=== PATIENT | male | born 1985 ===

== ENCOUNTER 2021-11-23 16:33 | Emergency (ER) | payer OTHER, SELFPAY ==
[2021-11-23 16:45] VITALS: BP 104/68; PULSE 68; RESP 18; TEMP 37; O2SAT 99; BMI 22.3
[2021-11-23 17:24] LABS: COVID-19 Test Negative (Negative)
--- NOTE | 2021-11-23 18:30 | ED.GENADULT ---
HPI - General Adult General Chief complaint: General Medical Stated complaint: vomiting and fever Time Seen by Provider: 11/23/21 16:50 Source: patient Mode of arrival: ambulatory Limitations: no limitations History of Present Illness HPI narrative: 36-year-old male presents to ED for COVID like symptoms after recent COVID exposure. Patient states having chills, body aches, nausea, and 1 episode of emesis. Patient denies any chest pain, abdominal pain, fever, flank pain, dysuria, hematuria, back pain or shortness of breath. Patient states he received both COVID Moderna vaccine. Patient has not yet received. Related Data Allergies Allergy/AdvReac Type Severity Reaction Status Date / Time LOBSTER Allergy Severe FACIAL Uncoded 08/02/20 15:34 SWELLING Review of Systems Review of Systems: Yes all other systems are reviewed and are negative Constitutional: Constitutional: Reports as per HPI, Reports no additional constitutional complaints, Reports body ache(s), Reports chills and Reports fatigue Eyes: Eyes: Reports as per HPI and Reports no additional eye complaints ENT: Reports system reviewed and no additional complaints, except as documented and Reports as per HPI Cardiovascular: Cardiovascular: Reports as per HPI and Reports no additional cardiovascular complaints Respiratory: Respiratory: Reports as per HPI and Reports no additional respiratory complaints Gastrointestinal: Gastrointestinal: Reports as per HPI, Reports no additional gastrointestinal complaints, Denies abdominal pain, Reports nausea and Reports vomiting (Once) Genitourinary: Genitourinary: Reports no additional male genitourinary complaints and Reports as per HPI Musculoskeletal: Musculoskeletal: Reports no additional musculoskeletal complaints and Reports as per HPI Endocrine: Endocrine: Reports fatigue PMFSH Social History Social History Advance Directives: No Advance Directives Information Provided: Yes Physical Exam Vital Signs: Vital Signs: Last Vital Signs Temp 98.6 F 11/23/21 16:45 Pulse 68 11/23/21 16:45 Resp 18 11/23/21 16:45 BP 104/68 11/23/21 16:45 Pulse Ox 99 11/23/21 16:45 BMI result Body Mass Index 22.3 Const: General: cooperative, healthy appearing, comfortable, no acute distress, well developed, alert, awake and Physically active Orientation/consciousness: patient oriented x3 HENMT: Head: Yes normal to inspection, Yes No palpable skull fracture present, Yes normocephalic, Yes atraumatic and No abrasion Eyes: General: appearance normal, both eyes and all related structures Neck: Neck: Yes normal visual inspection, Yes full ROM, Yes no lymphadenopathy, Yes no meningeal signs, Yes trachea midline, Yes supple, No anterior neck swelling and No tender Chest: Chest palpation & inspection: normal inspection of the chest and normal palpation of entire chest wall Resp: Effort & Inspection: normal respiratory effort and able to speak in complete sentences Auscultation: clear to auscultation bilaterally Cardio: Jugular venous distension: no JVD Heart sounds: S1 normal heart sound present and S2 normal heart sound present GI: Inspection: Yes normal to inspection and No abdominal wall ecchymosis Palpation (GI): Soft to palpation, not firm, nontender, no guarding and not rigid : General: No CVA tenderness and Yes no CVA tenderness Back/Spine/Pelvis: Back: no CVA tenderness, No CVA tenderness and No back tenderness Skin: General skin exam: no rashes or lesions noted and elasticity normal Neuro: General: patient oriented x3 and no meningeal signs Extrem: General: Yes normal to inspection and Yes full ROM Psych: Appearance: grossly normal, well kempt and not disheveled Course Course Course Narrative: Patient tested for COVID Reevaluation(s) Reevaluation #1: Patient is COVID negative. Patient informed COVID swab negative but this may be false negative due to recent exposure. Patient patient informed to get retested in 5 days. Patient well-appearing Time: 18:42 Medical Decision Making [facility] Narrative Medical decision making narrative: Viral syndrome Lab Data Labs: Lab Results 11/23/21 Range/Units 16:47 COVID-19 (BRANDON) Negative (Negative) COVID-19 Clin Com See Note Discharge Plan Discharge Clinical Impression: Acute viral syndrome Patient Disposition: Home, Self-Care Instructions: Viral Syndrome (ED) Additional Instructions: Your COVID test came back negative. This may be a false negative. Recommend retesting in 5 days. Return to the ED immediately for any chest pain, shortness of breath, weakness, dizziness, abdominal pain, dysuria, hematuria, flank pain, fever, chills, or any other concerning symptoms. Stand Alone Forms: Work/School Release Interventions: ED Discharge Assessment Last Done: 11/23/21 19:04 Discharge Date/Time: 11/23/21 19:05 Print Language: Austrian
== END 2021-11-23 19:05 | disposition home or self-care (01) ==
LOC: HO.ED 18:47
PROVIDERS: Emergency Provider Emergency Medicine
DX: B34.9 Viral infection, unspecified (principal); Z20.822 Contact with and (suspected) exposure to COVID-19
CPT/HCPCS: 87635; 99283

== ENCOUNTER 2022-11-14 21:24 | Emergency (ER) | payer MEDICAID, SELFPAY ==
[2022-11-14 21:35] VITALS: BP 129/81; PULSE 94; RESP 20; TEMP 37.4; O2SAT 98; BMI 25.1
[2022-11-14 22:03] LABS: Basophils Percent Auto 0.1 % (0-2); Hematocrit 46.1 % (42.0-52.0); Imm Gran Abs Auto 0.05 X10*3/uL (0.00-0.03); Imm Gran Pct Auto 0.3 % (0.0-0.4); Lymphocytes Absolute Auto 1.6 X10*3/uL (1.2-4.9); Lymphocytes Percent Auto 10.6 % (20-40); MANUAL DIFF FLAG NO; Mean Corpuscular HGB Conc 34.7 g/dl (31.0-36.0); Mean Corpuscular Hemoglobin 30.7 pg (27.0-33.0); Mean Corpuscular Volume 88.5 fL (80.0-98.0); Mean Platelet Volume 8.8 fL (9.4-12.4); Monocytes Absolute Auto 1.1 X10*3/uL (0.1-1.2); Monocytes Percent Auto 7.2 % (2-11); Neutrophils Absolute Auto 12.2 x10*3/uL (2.0-8.3); Neutrophils Percent Auto 81.8 % (45-73); Platelet Count 397 X10*3/uL (160-400); Red Blood Count 5.21 X10*6/uL (4.60-5.80); Red Cell Distribution Width 12.4 % (11.0-16.0); White Blood Count 14.9 X10*3/uL (4.8-10.8)
[2022-11-14 22:14] LABS: Fentanyl, urine POSITIVE (Not Detect)
[2022-11-14 22:16] LABS: Anion Gap 15 (12-20); Blood Urea Nitrogen 18 mg/dL (9-16); Calcium 10.6 mg/dL (8.4-10.2); Carbon Dioxide 29 mmol/L (22-29); Chloride 99 mmol/L (96-108); Creatinine Clr Calc Pharmacy 93.2; Estimated Glomerular Filt Rate > 60; Glucose Random 96 mg/dL (60-115); Sodium 139 mmol/L (135-145)
[2022-11-14 22:16] LABS: Amphetamine Screen Urine Not Detected (Not Detect); Barbiturates, Urine Not Detected (Not Detect); Benzodiazepines Screen Urine POSITIVE (Not Detect); Cannabinoid Screen Urine POSITIVE (Not Detect); Opiate Screen Urine Not Detected (Not Detect); Phencyclidine Screen Urine Not Detected (Not Detect)
[2022-11-14 23:15] LABS: Cocaine Screen Urine Not Detected (Not Detect)
[2022-11-15 02:06] VITALS: BP 107/64; PULSE 75; TEMP 37.1; O2SAT 96
--- NOTE | 2022-11-15 02:11 | ED.PSYCH ---
HPI - Psych General Chief Complaint: ETOH/Substance Use Stated Complaint: withdrawals Time Seen by Provider: 11/15/22 02:09 Source: patient Mode of arrival: ambulatory Limitations: no limitations History of Present Illness HPI Narrative: Patient uses Percocet, heroin last use was 11/09 feels he is withdrawing reports anxiety asking for help patient uses 1 bundle a day for last 5- 6 months started with Percocet now using heroin patient wants to stop using drugs as she he wants to help his and kid patient feels anxious restless nauseated Related Data Allergies Allergy/AdvReac Type Severity Reaction Status Date / Time LOBSTER Allergy Severe FACIAL Uncoded 11/14/22 21:37 SWELLING Review of Systems Review of Systems: Yes all other systems are reviewed and are negative [facility] Social History Social History Alcohol intake: never Smoked in Last 30 Days: Yes Use of substances other than those prescribed or required for medical reasons: Yes Substance Use Type: Heroin, Marijuana and Opiates Substance Use Frequency: Chronic Longstanding Last Used Substance: Days (ago) Any prior treatment program specific to substance use: No Advance Directives: No Advance Directives Information Provided: No Physical Exam Vital Signs: Vital Signs: Last Vital Signs Temp 98.7 F 11/15/22 06:27 Pulse 69 11/15/22 06:27 Resp 15 11/15/22 06:27 BP 111/61 11/15/22 06:27 Pulse Ox 99 11/15/22 06:27 O2 Del Method 11/15/22 06:27 BMI result Body Mass Index 25.1 Appearance: Alert. Oriented X3. No acute distress. Anxious Eyes: PERRLA, No Nystagmus ENT: Pharynx normal. Oral Mucosa moist Neck: Normal inspection. Neck supple. CVS: Normal heart rate and rhythm. Pulses normal. Respiratory: No respiratory distress. Equal air entry bilateral, no wheezing/rales/rhonchi Abdomen: Soft and nontender. Bowel sounds are present, no mass palpable, no CVA tenderness Skin: Skin warm and dry. Normal skin color. Normal skin turgor. Extremities: No lower extremity edema. No calf tenderness Neuro: Oriented X 3. No motor deficit. No sensory deficit.No cerebellar signs , cranial nerves II-XII intact Const: Other: Appearance: Alert. Oriented X3. No acute distress. Eyes: PERRLA, No Nystagmus ENT: Pharynx normal. Oral Mucosa moist Neck: Normal inspection. Neck supple. CVS: Normal heart rate and rhythm. Pulses normal. Respiratory: No respiratory distress. Equal air entry bilateral, no wheezing/rales/rhonchi Abdomen: Soft and nontender. Bowel sounds are present, no mass palpable, no CVA tenderness Skin: Skin warm and dry. Normal skin color. Normal skin turgor. Extremities: No lower extremity edema. No calf tenderness psych: Anxious mood stable no SI or HI Neuro: Oriented X 3. No motor deficit. No sensory deficit.No cerebellar signs , cranial nerves II-XII intact Medications Administered Discontinued Medications Generic Name Dose Route Start Last Admin Trade Name Freq PRN Reason Stop Dose Admin Lorazepam 2 mg 11/15/22 02:16 11/15/22 03:24 Lorazepam 1 Mg Tablet PO 11/15/22 02:17 2 mg ONCE ONE Administration Medical Decision Making Medical Decision Making MDM Narrative: Will get care team/ recovery coordinator for detox placement Lab Data MDM Lab Attestation statement: I reviewed the patient's lab results. Result Diagrams: 11/14/22 21:56 11/14/22 21:56 Labs: Lab Results 11/14/22 11/14/22 11/14/22 Range/Units 21:56 21:56 21:57 WBC 14.9 H (4.8-10.8) X10*3/uL RBC 5.21 (4.60-5.80) X10*6/uL Hgb 16.0 (14.0-18.0) g/dl Hct 46.1 (42.0-52.0) % MCV 88.5 (80.0-98.0) fL MCH 30.7 (27.0-33.0) pg MCHC 34.7 (31.0-36.0) g/dl RDW 12.4 (11.0-16.0) % Plt Count 397 (160-400) X10*3/uL MPV 8.8 L (9.4-12.4) fL Immature Gran % (Auto) 0.3 (0.0-0.4) % Neut % (Auto) 81.8 H (45-73) % Lymph % (Auto) 10.6 L (20-40) % [place] % (Auto) 7.2 (2-11) % Eos % (Auto) 0.0 (0-4) % Baso % (Auto) 0.1 (0-2) % Lymph # (Auto) 1.6 (1.2-4.9) X10*3/uL [place] # (Auto) 1.1 (0.1-1.2) X10*3/uL Eos # (Auto) 0.0 (0.0-0.4) X10*3/uL Baso # (Auto) 0.0 (0.0-0.2) X10*3/uL Abs Immat Gran (auto) 0.05 H (0.00-0.03) X10*3/uL Absolute Neuts (auto) 12.2 H (2.0-8.3) x10*3/uL Absolute Nucleated RBC 0.000 (0.0-0.012) X10*3/uL Nucleated RBC % (auto) 0.0 (0.0-0.2) /100WBC Sodium 139 (135-145) mmol/L Potassium 4.0 (3.3-5.1) mmol/L Chloride 99 (96-108) mmol/L Carbon Dioxide 29 (22-29) mmol/L Anion Gap 15 (12-20) BUN 18 H (9-16) mg/dL Creatinine 1.12 (0.5-1.4) mg/dL Estim Creat Clear Calc 93.2 Estimated GFR > 60 Random Glucose 96 (60-115) mg/dL Calcium 10.6 H (8.4-10.2) mg/dL Urine Opiates Screen Not Detected (Not Detect) Urine Fentanyl Screen POSITIVE H (Not Detect) Ur Barbiturates Screen Not Detected (Not Detect) Ur Phencyclidine Scrn Not Detected (Not Detect) Ur Amphetamines Screen Not Detected (Not Detect) U Benzodiazepines Scrn POSITIVE H (Not Detect) Urine Cocaine Screen Not Detected (Not Detect) U Marijuana (THC) Screen POSITIVE H (Not Detect) Discharge Plan Discharge Clinical Impression: Opiate dependence Patient Disposition: Still a Patient Interventions: Rembrandt-Suicide Risk Severity Scale Last Done: 11/15/22 02:02
[2022-11-15] MEDS: LORazepam 1 MG TABLET 2 MG PO (03:24)
--- NOTE | 2022-11-15 03:28 | PC.NURSE ---
Patient is resting in bed with his eyes closed, RR 14, no s/s of distress noted. Patient medicated with Lorazepam 2 mg PO per MAR, warm blanket provided to patient.
[2022-11-15 06:27] VITALS: BP 111/61; PULSE 69; RESP 15; TEMP 37.1; O2SAT 99
--- NOTE | 2022-11-15 07:15 | PC.NURSE ---
assumed care of patient, pt aox3, calm and cooperative, VSS, plan for d/c vs detox?
[2022-11-15 08:07] VITALS: BP 112/69; PULSE 72; RESP 15
--- NOTE | 2022-11-15 10:09 | MHC.EDTECH ---
patient sleeping, declined having vitals taken
--- NOTE | 2022-11-15 10:51 | PHA.MEDREC ---
Pharmacy Consult ? Medication Reconciliation Pharmacy has completed the medication reconciliation.
--- NOTE | 2022-11-15 12:01 | PC.NURSE ---
alert, speech clear, skin wpd, states no complaints, laying in bed w/ nad, awaiting CARE team and men's basketball coach
--- NOTE | 2022-11-15 13:00 | MHC.RECOVSUP ---
? Reason for consult:BOTH o? Current location:[facility]? o? Identified substance use concern:? -? Support ?? Intervention: o? Community resources provided o? Harm reduction discussion ? Plan: o? Referral to [facility] ? Additional information:RC met with pt, discussed recovery resources and harm reduction stratagies with pt. Pt was provided with contatct information as pt would like to work with a etiquette coach and get information for MAT. Rc will follow up with the patient on Thursday. Pt says he is not interested in ATS at this time, and is going home today.
--- NOTE | 2022-11-15 13:34 | PC.NURSE ---
nad, speech clear, skin wpd, steady gait, inst reviewed and belonings returned
== END 2022-11-15 13:34 | disposition still patient (30) ==
PROVIDERS: Emergency Provider Internal Medicine
DX: F10.239 Alcohol dependence with withdrawal, unspecified (principal); Y90.9 Presence of alcohol in blood, level not specified; F11.20 Opioid dependence, uncomplicated; Z71.41 Alcohol abuse counseling and surveillance of alcoholic; Z79.899 Other long term (current) drug therapy
CPT/HCPCS: 36415; 80048; 80307; 85025; 99284; 99285

== ENCOUNTER 2022-11-17 10:14 | Emergency (ER) | payer MEDICAID, SELFPAY ==
[2022-11-17 10:58] VITALS: BP 116/74; PULSE 69; RESP 16; TEMP 36.4; O2SAT 99; BMI 24.4
--- NOTE | 2022-11-17 11:04 | ED.GENADULT ---
HPI - General Adult General Chief complaint: General Medical Stated complaint: withdrawals Time Seen by Provider: 11/17/22 11:01 Source: patient Mode of arrival: ambulatory Limitations: no limitations History of Present Illness HPI narrative: This is a 37-year-old male with a history of opiate use disorder who presents seeking Suboxone withdrawal symptoms. Patient reports using 2 bundles of heroin daily IV. His last use was [place] morning. Patient is here as he spoke to the [facility] today to try to start Suboxone but they are closed. There is plan for him to follow up with the clinic tomorrow. Patient is complaining of body pain, insomnia, upset stomach, diarrhea. Patient denies any additional substance use. Patient denies any suicidal ideations Patient reports he has been on Suboxone before in the past Related Data Previous Rx's Medication Instructions Recorded buprenorphine 8 mg-naloxone 2 mg 1 film buccal DAILY #3 ea 11/17/22 sublingual film (Suboxone) Allergies Allergy/AdvReac Type Severity Reaction Status Date / Time LOBSTER Allergy Severe FACIAL Uncoded 11/14/22 21:37 SWELLING Review of Systems Review of Systems: Yes all other systems are reviewed and are negative Constitutional: Constitutional: Reports no additional constitutional complaints, Reports body ache(s), Denies chills, Reports difficulty sleeping, Denies fever(s), Denies headache(s) and Denies weakness Eyes: Eyes: Reports no additional eye complaints and Denies change in vision ENT: Reports system reviewed and no additional complaints, except as documented, Denies dizziness, Denies headache(s), Denies nasal congestion, Denies nasal discharge and Denies neck pain Cardiovascular: Cardiovascular: Reports no additional cardiovascular complaints, Denies chest pain, Denies leg edema and Denies dyspnea Respiratory: Respiratory: Reports no additional respiratory complaints, Denies cough and Denies dyspnea Gastrointestinal: Gastrointestinal: Reports no additional gastrointestinal complaints, Reports abdominal pain, Reports diarrhea, Denies nausea and Denies vomiting Genitourinary: Genitourinary: Denies urinary incontinence Musculoskeletal: Musculoskeletal: Reports no additional musculoskeletal complaints, Denies back pain, Denies arthralgias, Denies joint swelling, Denies neck pain, Denies numbness and Denies tingling Integumentary/Breasts: Skin/Breast: Reports system reviewed and no additional complaints, except as docu and Denies rash Neurologic: Reports system reviewed and no additional complaints, except as documented, Denies dizziness, Denies headache(s), Denies numbness, Denies tingling and Denies weakness PMF Past Medical History Attestation statement: The following information was validated with the patient. Source: old records reviewed and nursing notes reviewed Social History Social History Alcohol intake: never Substance Use Type: Heroin, Marijuana and Opiates Advance Directives: No Advance Directives Information Provided: No Physical Exam ED Vital Signs: Vital Signs - 24 hr 11/17/22 10:58 Temperature 97.5 F Pulse Rate 69 Respiratory Rate 16 Blood Pressure 116/74 Pulse Oximetry 99 Oxygen Delivery Method Room Air BMI result Body Mass Index 24.4 Const Other: Grimacing, in pain General: alert Orientation/consciousness: patient oriented x3 Limitations: no limitations HENMT Head: Yes normal to inspection Ears: hearing grossly normal bilaterally Eyes General: appearance normal, both eyes and all related structures Neck Neck: Yes normal visual inspection Chest Chest palpation & inspection: normal inspection of the chest Resp Effort & Inspection: normal respiratory effort Cardio Rate: regular rate Rhythm: regular rhythm Peripheral pulses: Peripheral pulses 2+ throughout GI Inspection: Yes normal to inspection Skin General skin exam: no rashes or lesions noted Neuro General: patient oriented x3 and moves all extremities Cognition (Neuro): normal cognition Course Course Course Narrative: Patient feels much improved after 1 dose of Suboxone. Carolina martinez the recovery nurse came down to see the patient and plan is for him to follow up outpatient with them the [facility]. Patient given prescription for several days in case he cannot get there. Reviewed worrisome signs and symptoms of when to return to the emergency room. Comfortable discharge home. Medications Administered Discontinued Medications Generic Name Dose Route Start Last Admin Trade Name Freq PRN Reason Stop Dose Admin Buprenorphine/Naloxone 1 film 11/17/22 11:28 11/17/22 11:46 Buprenorphine/Naloxone 8/2 Mg Film SUBLINGUAL 11/17/22 11:29 1 film ONCE ONE Administration Medical Decision Making Medical Decision Making [facility] Narrative: 37-year-old male here in opiate withdrawal with history of 0 UD with last use [place]. Cows score 11 Will order drug screen, Suboxone 8 mg Differential Diagnosis Differential Diagnoses: The differential diagnosis associated with the presentation includes Lab Data Labs: Lab Results 11/17/22 Range/Units 12:19 Urine Opiates Screen Not Detected (Not Detect) Urine Fentanyl Screen POSITIVE H (Not Detect) Ur Barbiturates Screen Not Detected (Not Detect) Ur Phencyclidine Scrn Not Detected (Not Detect) Ur Amphetamines Screen Not Detected (Not Detect) U Benzodiazepines Scrn Not Detected (Not Detect) Urine Cocaine Screen Not Detected (Not Detect) U Marijuana (THC) Screen POSITIVE H (Not Detect) Discharge Plan Discharge Clinical Impression: Opiate withdrawal Patient Disposition: Home, Self-Care Instructions: Opioid Withdrawal (ED) Additional Instructions: Go to the [facility] tomorrow during the walk-in hours to be seen and for further doses of your Suboxone Prescriptions: New buprenorphine-naloxone [Suboxone] 8-2 mg film 1 film buccal DAILY Qty: 3 0RF Referrals: Physician,None [Primary Care Provider] - Interventions: ED Discharge Assessment Last Done: 11/17/22 12:47 Discharge Date/Time: 11/17/22 12:49
[2022-11-17] MEDS: Buprenorphine/Naloxone 8/2 mg FILM 1 FILM SUBLINGUAL (11:46)
--- NOTE | 2022-11-17 12:28 | MHC.RECOVRN ---
Received call from pt in the community who was reporting opioid withdrawal symptoms, t/w encouraged pt to present to ED. Pt had presented to [facility] ED on 11/15 for same. At that time pt received Ativan for withdrawal symptoms, met with a RC, and was dc home. This morning, pt reports last opiate use on 11/09 (had been using about 2 bundles daily) and continues to feel withdrawal. Pt has been on Suboxone in the past and would like to restart. Pt is staying in [place] and would be able to follow up with [facility] upon dc. Spoke with provider, plan for pt to receive Suboxone while in ED and have script sent to pharmacy. T/w provided pt with CCC and t/w contact information to follow up on 11/18.
[2022-11-17 12:39] LABS: Amphetamine Screen Urine Not Detected (Not Detect); Barbiturates, Urine Not Detected (Not Detect); Benzodiazepines Screen Urine Not Detected (Not Detect); Cannabinoid Screen Urine POSITIVE (Not Detect); Cocaine Screen Urine Not Detected (Not Detect); Fentanyl, urine POSITIVE (Not Detect); Opiate Screen Urine Not Detected (Not Detect); Phencyclidine Screen Urine Not Detected (Not Detect)
== END 2022-11-17 12:49 | disposition home or self-care (01) ==
PROVIDERS: Nurse Practitioner Family; Emergency Provider Student in an Organized Health Care Education/Training Program
DX: F11.93 Opioid use, unspecified with withdrawal (principal)
CPT/HCPCS: 80307; 99283

== ENCOUNTER → 2022-11-19 09:59 | Outpatient (BNVA) | payer MEDICAID, SELFPAY | PROVIDERS: Visit Provider Nurse Practitioner Psychiatric/Mental Health | DX: F11.20 Opioid dependence, uncomplicated (principal) | CPT/HCPCS: 99202 ==

== ENCOUNTER → 2022-11-26 10:11 | Outpatient (BNVA) | payer MEDICAID, SELFPAY | PROVIDERS: Visit Provider Nurse Practitioner Psychiatric/Mental Health | DX: F11.20 Opioid dependence, uncomplicated (principal) | CPT/HCPCS: 99212 ==

== ENCOUNTER → 2022-12-04 10:00 | Outpatient (BNVA) | payer MEDICAID, SELFPAY | PROVIDERS: Visit Provider Nurse Practitioner Psychiatric/Mental Health | DX: F11.20 Opioid dependence, uncomplicated (principal) | CPT/HCPCS: 99212 ==

== ENCOUNTER → 2022-12-17 09:55 | Outpatient (BNVA) | payer MEDICAID, SELFPAY | PROVIDERS: Visit Provider Nurse Practitioner Psychiatric/Mental Health | DX: Z51.81 Encounter for therapeutic drug level monitoring (principal); F11.20 Opioid dependence, uncomplicated | CPT/HCPCS: 80305; 99212 ==

== ENCOUNTER → 2022-12-31 09:57 | Outpatient (BNVA) | payer MEDICAID, SELFPAY | PROVIDERS: Visit Provider Nurse Practitioner Psychiatric/Mental Health | DX: F11.20 Opioid dependence, uncomplicated (principal) | CPT/HCPCS: 80305; 99212 ==

== ENCOUNTER → 2023-01-15 09:38 | Outpatient (BNVA) | payer MEDICAID, SELFPAY | PROVIDERS: Visit Provider Nurse Practitioner Psychiatric/Mental Health | DX: F11.20 Opioid dependence, uncomplicated (principal) | CPT/HCPCS: 99212 ==

== ENCOUNTER 2023-01-23 09:58 | Emergency (ER) | payer MEDICAID, SELFPAY ==
[2023-01-23 10:30] VITALS: BP 117/95; PULSE 69; RESP 18; TEMP 36.4; O2SAT 98; BMI 24.4
[2023-01-23] MEDS: Ondansetron ODT 4 MG TAB.RAPDIS TRANSLINGU (11:01)
--- NOTE | 2023-01-23 11:01 | ED.NAVMDI ---
HPI - Nausea/Vomiting/Diarrhea General Chief complaint: Abdominal Pain <JANES Villafana - Last Filed: 01/23/23 11:03> Stated complaint: abd pain, vomiting <JANES Villafana - Last Filed: 01/23/23 11:03> Time Seen by Provider: 01/23/23 16:23 <JANES Villafana - Last Filed: 01/23/23 11:03> Source: patient <JANES Warren Last Filed: 01/23/23 18:53> Mode of arrival: ambulatory <JANES Warren - Last Filed: 01/23/23 18:53> Limitations: no limitations <JANES Warren Last Filed: 01/23/23 18:53> History of Present Illness HPI Narrative: Patient is a 37 year old assigned male at with a history of opiate use disorder presenting to the emergency department today with intermittent abdominal cramping, nausea, and vomiting. Patient states that he has been having intermittent abdominal cramping, nausea, and vomiting over the last 24 hours. Patient denies eating any new or unsanitary food items. Patient denies any dizziness, lightheadedness, fever, chills, blurry vision, double vision, loss of vision, chest pain, difficulty breathing, shortness of breath, back pain, night sweats, pain with urination, increased urinary frequency, increased urinary urgency, blood in his urine or stool, syncope or a near syncopal episode, recent trauma or falls, bowel incontinence, bladder incontinence, bowel retention, bladder retention, or any other complaints at this time. <JANES Warren - Last Filed: 01/23/23 18:53> MD elicited complaint: nausea, vomiting and abdominal pain <JANES Warren - Last Filed: 01/23/23 18:53> Onset (ago): day(s) (1) <JANES Warren - Last Filed: 01/23/23 18:53> Associated nausea: Yes <JANES Warren Last Filed: 01/23/23 18:53> Associated abdominal pain: Yes <JANES Warren Last Filed: 01/23/23 18:53> Pain consistency: intermittent and now resolved <JANES Warren - Last Filed: 01/23/23 18:53> Severity: mild <JANES Warren - Last Filed: 01/23/23 18:53> Pain scale (0-10): 3 <JANES Warren Last Filed: 01/23/23 18:53> Exacerbating factors: none <JANES Warren Last Filed: 01/23/23 18:53> Relieving factors: none <JANES Warren Last Filed: 01/23/23 18:53> Associated symptoms: nausea/vomiting <JANES Warren Last Filed: 01/23/23 18:53> Related Data Home medications: Previous Rx's Medication Instructions Recorded naloxone 4 mg/actuation nasal 4 mg intranasal Q2M PRN opioid 11/19/22 spray (Narcan) overdose #2 ea digital therapeutics, OUD (Reset-O #1 ea 12/31/22 Digital Tarsha (OUD)) buprenorphine 12 mg-naloxone 3 mg 1 film sublingual DAILY #15 ea 01/15/23 sublingual film (Suboxone) ondansetron 4 mg disintegrating 4 mg PO Q8H 3 days #9 tabs 01/23/23 tablet <JANES Villafana Last Filed: 01/23/23 11:03> Allergies/Adverse reactions: Allergies Allergy/AdvReac Type Severity Reaction Status Date / Time LOBSTER Allergy Severe FACIAL Uncoded 01/15/23 09:48 SWELLING <JANES Villafana Last Filed: 01/23/23 11:03> Review of Systems Constitutional: Constitutional: Reports no additional constitutional complaints, Denies chills, Denies fever(s) and Denies night sweats <JANES Warren Last Filed: 01/23/23 18:53> Eyes: Eyes: Reports no additional eye complaints, Denies blurry vision, Denies change in vision, Denies diplopia, Denies eye discharge, Denies loss of vision and Denies eye pain <JANES Warren Last Filed: 01/23/23 18:53> ENT: Denies dizziness <JANES Warren Last Filed: 01/23/23 18:53> Cardiovascular: Cardiovascular: Reports no additional cardiovascular complaints, Denies chest pain, Denies lightheadedness, Denies Loss of Consciousness and Denies dyspnea <JANES Warren - Last Filed: 01/23/23 18:53> Respiratory: Respiratory: Reports no additional respiratory complaints and Denies dyspnea <JANES Warren Last Filed: 01/23/23 18:53> Gastrointestinal: Gastrointestinal: Reports abdominal pain (now resolved), Reports nausea and Reports vomiting <JANES Warren - Last Filed: 01/23/23 18:53> Genitourinary: Genitourinary: Reports no additional male genitourinary complaints, Denies hematuria, Denies oliguria, Denies difficulty urinating, Denies dysuria, Denies urinary frequency, Denies urinary hesitancy, Denies urinary incontinence and Denies urinary urgency <JANES Warren Last Filed: 01/23/23 18:53> Musculoskeletal: Musculoskeletal: Reports no additional musculoskeletal complaints, Denies numbness and Denies tingling <JANES Warren Last Filed: 01/23/23 18:53> Neurologic: Denies dizziness, Denies loss of vision, Denies numbness and Denies tingling <JANES Warren Last Filed: 01/23/23 18:53> Psychiatric: Psychiatric: Reports no additional psychiatric complaints <JANES Warren Last Filed: 01/23/23 18:53> Endocrine: Endocrine: Reports no additional endocrine complaints <JANES Warren - Last Filed: 01/23/23 18:53> Hematologic/Lymphatic: Hematologic/Lymphatic: Reports no additional hematologic/lymphatic complaints <JANES Warren - Last Filed: 01/23/23 18:53> Allergic/Immunologic: Allergic/Immunologic: Reports no additional allergic/immunologic complaints <JANES Warren Last Filed: 01/23/23 18:53> PMFSH Past Medical History Attestation statement: The following information was validated with the patient. <JANES Warren Last Filed: 01/23/23 18:53> Source: old records reviewed and nursing notes reviewed <JANES Warren - Last Filed: 01/23/23 18:53> Social History Social History: Social History Alcohol intake: never Substance Use Type: Heroin, Marijuana and Opiates Advance Directives: No Advance Directives Information Provided: No <JANES Villafana - Last Filed: 01/23/23 11:03> Physical Exam Vital Signs: Vital Signs: Last Vital Signs Temp 99.1 F 01/23/23 16:13 Pulse 65 01/23/23 16:13 Resp 16 01/23/23 16:13 BP 119/68 01/23/23 16:13 Pulse Ox 98 01/23/23 16:13 O2 Del Method 01/23/23 16:13 BMI result Body Mass Index 24.4 <JANES Villafana - Last Filed: 01/23/23 11:03> Vital Signs: Last Vital Signs Temp 99.1 F 01/23/23 16:13 Pulse 65 01/23/23 16:13 Resp 16 01/23/23 16:13 BP 119/68 01/23/23 16:13 Pulse Ox 98 01/23/23 16:13 O2 Del Method 01/23/23 16:13 BMI result Body Mass Index 24.4 <JANES Warren - Last Filed: 01/23/23 18:53> Const: General: cooperative, no acute distress, alert and awake <JANES Warren - Last Filed: 01/23/23 18:53> Nutritional Appearance: well nourished <JANES Warren - Last Filed: 01/23/23 18:53> Orientation/consciousness: patient oriented x3 <JANES Warren - Last Filed: 01/23/23 18:53> Limitations: no limitations <JANES Warren - Last Filed: 01/23/23 18:53> HEENT: Head: Yes normal to inspection and Yes atraumatic <JANES Warren Last Filed: 01/23/23 18:53> Ears: hearing grossly normal bilaterally and external ears normal <JANES Warren Last Filed: 01/23/23 18:53> General nose exam: Normal external nose present, no nasal discharge noted and no epistaxis <JANES Warren Last Filed: 01/23/23 18:53> Face and sinus: Yes normal facial exam, No abrasion and No laceration <Palmira Garcia [facility] Last Filed: 01/23/23 18:53> Mouth: Normal oral and palatal mucosa present, no drooling and no muffled voice <Palmira Garcia [facility] Last Filed: 01/23/23 18:53> Eyes: General: appearance normal, both eyes and all related structures <Palmira Garcia [facility] Last Filed: 01/23/23 18:53> Periorbital: periorbital findings normal <Palmira Garcia [facility] Last Filed: 01/23/23 18:53> Eyelids: Yes eyelids normal <Palmira Garcia [facility] Last Filed: 01/23/23 18:53> Conjunctivae: conjunctivae normal <Palmira Garcia [facility] Last Filed: 01/23/23 18:53> Pupils: Equal, round and reactive pupils present <Palmira Garcia [facility] Last Filed: 01/23/23 18:53> EOM: EOMs intact bilaterally <Palmira Newellmarylou [facility] Last Filed: 01/23/23 18:53> Neck: Neck: Yes normal visual inspection, Yes full ROM and Yes no lymphadenopathy <Palmira Garcia [facility] Last Filed: 01/23/23 18:53> Chest: Chest palpation & inspection: normal inspection of the chest <Palmira Newellmarylou [facility] Last Filed: 01/23/23 18:53> Resp: Effort & Inspection: normal respiratory effort and able to speak in complete sentences <Palmira Newellmarylou [facility] Last Filed: 01/23/23 18:53> Auscultation: clear to auscultation bilaterally <Palmira Newellmarylou [facility] Last Filed: 01/23/23 18:53> Cardio: Rate: regular rate <Palmira Newellmarylou [facility] Last Filed: 01/23/23 18:53> Rhythm: regular rhythm <Palmira Newellmarylou [facility] Last Filed: 01/23/23 18:53> GI: Inspection: Yes normal to inspection <Palmira Newellmarylou [facility] Last Filed: 01/23/23 18:53> Palpation (GI): Soft to palpation, not firm, nontender, no guarding and not rigid <Palmirakaylie Newellmarylou ID - Last Filed: 01/23/23 18:53> Neuro: General: patient oriented x3 and moves all extremities <JANES Warren - Last Filed: 01/23/23 18:53> Cranial nerves: Yes Equal, round and reactive pupils present <JANES Warren - Last Filed: 01/23/23 18:53> Cognition (Neuro): normal cognition <JANES Warren - Last Filed: 01/23/23 18:53> Motor exam (neuro): 5/5 motor strength present throughout <JANES Warren - Last Filed: 01/23/23 18:53> Sensory Exam: Normal double simultaneous stimulation for sensation <JANES Warren - Last Filed: 01/23/23 18:53> Coordination: [id number] test normal <JANES Warren - Last Filed: 01/23/23 18:53> Extrem: General: Yes normal to inspection, Yes full ROM and Yes capillary refill normal <JANES Warren - Last Filed: 01/23/23 18:53> Psych: Appearance: grossly normal <JANES Warren - Last Filed: 01/23/23 18:53> Mental Status: mental status grossly normal <JANES Warren - Last Filed: 01/23/23 18:53> Affect: normal affect <JANES Warren - Last Filed: 01/23/23 18:53> Attitude: cooperative <JANES Warren - Last Filed: 01/23/23 18:53> Thought process: Normal thought process present <JANES Warren - Last Filed: 01/23/23 18:53> Thought content: Normal thought content present <JANES Warren - Last Filed: 01/23/23 18:53> Insight: Good insight present (Psych) <JANES Warren - Last Filed: 01/23/23 18:53> Course Course Course Narrative: RME - 37 y/o male with history of opiate use disorder on suboxone presents to the ER for evaluation of nausea and abdominal cramping that started yesterday along with recurrent vomiting that started today. No diarrhea. Actively vomiting in triage. Given SL Zofran. Plan: labs and COVID swab. reassess after zofran <JANES Villafana - Last Filed: 01/23/23 11:03> Medications Administered Discontinued Medications Generic Name Dose Route Start Last Admin Trade Name Freq PRN Reason Stop Dose Admin Ondansetron HCl 4 mg 01/23/23 10:57 01/23/23 11:01 Ondansetron Odt 4 Mg Tab.Reginald TRANSLINGU 01/23/23 10:58 4 mg ONCE ONE Administration <JANES Villafana - Last Filed: 01/23/23 11:03> Medications Administered Discontinued Medications Generic Name Dose Route Start Last Admin Trade Name Freq PRN Reason Stop Dose Admin Ondansetron HCl 4 mg 01/23/23 10:57 01/23/23 11:01 Ondansetron Odt 4 Mg Tab.Rapdis TRANSLINGU 01/23/23 10:58 4 mg ONCE ONE Administration <JANES Warren - Last Filed: 01/23/23 18:53> Medical Decision Making Medical Decision Making MDM Narrative: Patient is a 37 year old assigned male at with a history of opiate use disorder presenting to the emergency department today with resolved abdominal pain, nausea, and vomiting. Patient's physical exam was unremarkable. Patient's blood work showed an elevated WBC count but was otherwise unremarkable. Patient's clinical presentation is most consistent with a viral gastroenteritis. I explained my physical exam findings as well as all test results to the patient. I answered all questions asked by the patient. Patient received ODT Zofran which he stated helped his symptoms significantly. I stressed the importance of the patient taking his medication as prescribed. I stressed the importance of the patient following up with his primary care provider. I stressed the importance of the patient returning to the emergency department immediately if his symptoms were to worsen or if he were to develop any dizziness, shortness of breath, difficulty breathing, chest pain, blurry vision, loss of vision, nausea, vomiting, abdominal pain, fever, chills, back pain, or any other complaints. Patient verbalized agreement and understanding with this treatment plan and discharge. <JANES Warren - Last Filed: 01/23/23 18:53> Differential Diagnosis Differential Diagnoses: The differential diagnosis associated with the presentation includes <JANES Warren - Last Filed: 01/23/23 18:53> nausea, vomiting, gastroenteritis <JANES Warren - Last Filed: 01/23/23 18:53> Lab Data [facility] Lab Attestation statement: I reviewed the patient's lab results. <JANES Warren - Last Filed: 01/23/23 18:53> Result Diagrams: 01/23/23 13:25 01/23/23 11:14 <JANES Villafana - Last Filed: 01/23/23 11:03> Labs: Lab Results 01/23/23 01/23/23 01/23/23 Range/Units 11:14 13:25 16:10 WBC 18.6 H (4.8-10.8) X10*3/uL RBC 5.17 (4.60-5.80) X10*6/uL Hgb 16.3 (14.0-18.0) g/dl Hct 47.4 (42.0-52.0) % MCV 91.7 (80.0-98.0) fL MCH 31.5 (27.0-33.0) pg MCHC 34.4 (31.0-36.0) g/dl RDW 12.9 (11.0-16.0) % Plt Count 220 D (160-400) X10*3/uL MPV Not Reportable Immature Gran % (Auto) 0.5 H (0.0-0.4) % Neut % (Auto) 88.7 H (45-73) % Lymph % (Auto) 6.2 L (20-40) % Cataño % (Auto) 4.3 (2-11) % Eos % (Auto) 0.1 (0-4) % Baso % (Auto) 0.2 (0-2) % Lymph # (Auto) 1.2 (1.2-4.9) X10*3/uL Cataño # (Auto) 0.8 (0.1-1.2) X10*3/uL Eos # (Auto) 0.0 (0.0-0.4) X10*3/uL Baso # (Auto) 0.0 (0.0-0.2) X10*3/uL Abs Immat Gran (auto) 0.10 H (0.00-0.03) X10*3/uL Absolute Neuts (auto) 16.5 H (2.0-8.3) x10*3/uL Absolute Nucleated RBC 0.000 (0.0-0.012) X10*3/uL Nucleated RBC % (auto) 0.0 (0.0-0.2) /100WBC Smear Tech's Comments VERIFIED Sodium 140 (135-145) mmol/L Potassium 4.3 (3.3-5.1) mmol/L Chloride 107 (96-108) mmol/L Carbon Dioxide 22 (22-29) mmol/L Anion Gap 15 (12-20) BUN 18 H (9-16) mg/dL Creatinine 0.85 (0.5-1.4) mg/dL Estim Creat Clear Calc 126.7 Estimated GFR > 60 Random Glucose 104 (60-115) mg/dL Calcium 9.4 D (8.4-10.2) mg/dL Total Bilirubin 0.5 (0.0-1.0) mg/dL AST 17 (5-37) U/L ALT 13 (0-40) U/L Alkaline Phosphatase 57 (39-117) U/L Total Protein 7.5 (6.5-8.0) g/dL Albumin 4.8 (3.5-5.0) g/dL Influenza Type A (PCR) NEGATIVE (Negative) Influenza Type B (PCR) NEGATIVE (Negative) RSV RNA Qual (PCR) NEGATIVE (Negative) SARS-CoV-2 RNA (RT-PCR) NEGATIVE (Negative) <JANES Villafana - Last Filed: 01/23/23 11:03> Lab Results 01/23/23 01/23/23 01/23/23 Range/Units 11:14 13:25 16:10 WBC 18.6 H (4.8-10.8) X10*3/uL RBC 5.17 (4.60-5.80) X10*6/uL Hgb 16.3 (14.0-18.0) g/dl Hct 47.4 (42.0-52.0) % MCV 91.7 (80.0-98.0) fL MCH 31.5 (27.0-33.0) pg MCHC 34.4 (31.0-36.0) g/dl RDW 12.9 (11.0-16.0) % Plt Count 220 D (160-400) X10*3/uL MPV Not Reportable Immature Gran % (Auto) 0.5 H (0.0-0.4) % Neut % (Auto) 88.7 H (45-73) % Lymph % (Auto) 6.2 L (20-40) % Cataño % (Auto) 4.3 (2-11) % Eos % (Auto) 0.1 (0-4) % Baso % (Auto) 0.2 (0-2) % Lymph # (Auto) 1.2 (1.2-4.9) X10*3/uL Cataño # (Auto) 0.8 (0.1-1.2) X10*3/uL Eos # (Auto) 0.0 (0.0-0.4) X10*3/uL Baso # (Auto) 0.0 (0.0-0.2) X10*3/uL Abs Immat Gran (auto) 0.10 H (0.00-0.03) X10*3/uL Absolute Neuts (auto) 16.5 H (2.0-8.3) x10*3/uL Absolute Nucleated RBC 0.000 (0.0-0.012) X10*3/uL Nucleated RBC % (auto) 0.0 (0.0-0.2) /100WBC Smear Tech's Comments VERIFIED Sodium 140 (135-145) mmol/L Potassium 4.3 (3.3-5.1) mmol/L Chloride 107 (96-108) mmol/L Carbon Dioxide 22 (22-29) mmol/L Anion Gap 15 (12-20) BUN 18 H (9-16) mg/dL Creatinine 0.85 (0.5-1.4) mg/dL Estim Creat Clear Calc 126.7 Estimated GFR > 60 Random Glucose 104 (60-115) mg/dL Calcium 9.4 D (8.4-10.2) mg/dL Total Bilirubin 0.5 (0.0-1.0) mg/dL AST 17 (5-37) U/L ALT 13 (0-40) U/L Alkaline Phosphatase 57 (39-117) U/L Total Protein 7.5 (6.5-8.0) g/dL Albumin 4.8 (3.5-5.0) g/dL Influenza Type A (PCR) NEGATIVE (Negative) Influenza Type B (PCR) NEGATIVE (Negative) RSV RNA Qual (PCR) NEGATIVE (Negative) SARS-CoV-2 RNA (RT-PCR) NEGATIVE (Negative) <JANES Warren - Last Filed: 01/23/23 18:53> Discharge Plan Discharge Clinical Impression: Gastroenteritis <JANES Villafana Last Filed: 01/23/23 11:03> Patient Disposition: Home, Self-Care <JANES Villafana Last Filed: 01/23/23 11:03> Instructions: Gastroenteritis (ED) <JANES Villafana Last Filed: 01/23/23 11:03> Additional Instructions: Follow up with your primary care provider. Return to the emergency department immediately if your symptoms worsen or if you develop any dizziness, shortness of breath, difficulty breathing, chest pain, blurry vision, loss of vision, nausea, vomiting, abdominal pain, fever, chills, back pain, or any other complaints. <JANES Villafana - Last Filed: 01/23/23 11:03> Prescriptions: New ondansetron 4 mg tablet,disintegrating 4 mg PO Q8H 3 Days Qty: 9 0RF No Action (DME) Reset-O Digital Tarsha (OUD) Misc See Rx Instructions .MEDSUPPLY Qty: 1 0RF Rx Instructions: As directed (3-4 times a week) 84 days buprenorphine-naloxone [Suboxone] 12-3 mg film 1 film sublingual DAILY Qty: 15 0RF naloxone [Narcan] 4 mg/actuation spray,non-aerosol 4 mg intranasal Q2M PRN (Reason: opioid overdose) Qty: 2 0RF Rx Instructions: spray 1 dose into ONE nostril; alternate nostrils w each dose until help arrives <JANES Villafana Last Filed: 01/23/23 11:03> Referrals: [facility] [place], [place] Family Medicine [Provider Group] (Call to establish and follow up with a primary care provider. If you already have a primary care provider, please follow up with them.) [facility] [place] [place] [facility] [Provider Group] (Call to establish and follow up with a primary care provider. If you already have a primary care provider, please follow up with them.) [facility] [place] [place] Primary [facility] [Provider Group] (Call to establish and follow up with a primary care provider. If you already have a primary care provider, please follow up with them.) <JANES Villafana - Last Filed: 01/23/23 11:03> Stand Alone Forms: Work/School Release <JANES Villafana - Last Filed: 01/23/23 11:03> Interventions: ED Discharge Assessment Last Done: 01/23/23 17:20 <JANES Villafana - Last Filed: 01/23/23 11:03> Discharge Date/Time: 01/23/23 17:20 <JANES Villafana - Last Filed: 01/23/23 11:03> Print Language: Khmer <JANES Villafana - Last Filed: 01/23/23 11:03>
--- NOTE | 2023-01-23 11:16 | MHC.EDTECH ---
Labs/covid collected and sent
[2023-01-23 12:30] LABS: Influenza A PCR NEGATIVE (Negative); Influenza B PCR NEGATIVE (Negative); Resp Syncy Virus RNA Qual PCR NEGATIVE (Negative); SARS COV2 PCR INHOUSE NEGATIVE (Negative)
[2023-01-23 13:32] LABS: Basophils Percent Auto 0.2 % (0-2); Eosinophils Percent Auto 0.1 % (0-4); Hematocrit 47.4 % (42.0-52.0); Hemoglobin 16.3 g/dl (14.0-18.0); Imm Gran Pct Auto 0.5 % (0.0-0.4); Lymphocytes Absolute Auto 1.2 X10*3/uL (1.2-4.9); Lymphocytes Percent Auto 6.2 % (20-40); MANUAL DIFF FLAG SCAN; Mean Corpuscular HGB Conc 34.4 g/dl (31.0-36.0); Mean Corpuscular Hemoglobin 31.5 pg (27.0-33.0); Mean Corpuscular Volume 91.7 fL (80.0-98.0); Monocytes Absolute Auto 0.8 X10*3/uL (0.1-1.2); Monocytes Percent Auto 4.3 % (2-11); Neutrophils Absolute Auto 16.5 x10*3/uL (2.0-8.3); Neutrophils Percent Auto 88.7 % (45-73); PLT CLUMP 1; Red Blood Count 5.17 X10*6/uL (4.60-5.80); Red Cell Distribution Width 12.9 % (11.0-16.0); SCAN SMEAR FLAG 1; White Blood Count 18.6 X10*3/uL (4.8-10.8)
[2023-01-23 13:59] LABS: Platelet Count 220 X10*3/uL (160-400)
[2023-01-23 14:00] LABS: SLIDE REVIEW VERIFIED
[2023-01-23 16:13] VITALS: BP 119/68; PULSE 65; RESP 16; TEMP 37.3; O2SAT 98
--- NOTE | 2023-01-23 16:14 | MHC.EDTECH ---
PT WAS CALLED BACK TO TRIAGE TO RE DRAW LABS AND RE CHECK VITALS SIGN .
[2023-01-23 16:34] LABS: Alanine Aminotransferase 13 U/L (0-40); Albumin Level 4.8 g/dL (3.5-5.0); Alkaline Phosphatase 57 U/L (39-117); Anion Gap 15 (12-20); Aspartate Amino Transferase 17 U/L (5-37); Bilirubin Total 0.5 mg/dL (0.0-1.0); Blood Urea Nitrogen 18 mg/dL (9-16); Calcium 9.4 mg/dL (8.4-10.2); Carbon Dioxide 22 mmol/L (22-29); Chloride 107 mmol/L (96-108); Creatinine Clr Calc Pharmacy 126.7; Estimated Glomerular Filt Rate > 60; Glucose Random 104 mg/dL (60-115); Potassium 4.3 mmol/L (3.3-5.1); Sodium 140 mmol/L (135-145); Total Protein 7.5 g/dL (6.5-8.0)
== END 2023-01-23 17:20 | disposition home or self-care (01) ==
PROVIDERS: Emergency Provider Emergency Medicine
DX: K52.9 Noninfective gastroenteritis and colitis, unspecified (principal); R10.9 Unspecified abdominal pain; R11.2 Nausea with vomiting, unspecified; Z20.822 Contact with and (suspected) exposure to COVID-19
CPT/HCPCS: 0241U; 80053; 85025; 99282; 99283

== ENCOUNTER → 2023-01-28 10:21 | Outpatient (BNVA) | payer MEDICAID, SELFPAY | PROVIDERS: Visit Provider Nurse Practitioner Psychiatric/Mental Health | DX: F11.20 Opioid dependence, uncomplicated (principal) | CPT/HCPCS: 99212 ==

== ENCOUNTER → 2023-02-18 10:33 | Outpatient (BNVA) | payer MEDICAID, SELFPAY | PROVIDERS: Visit Provider Nurse Practitioner Psychiatric/Mental Health | DX: F11.20 Opioid dependence, uncomplicated (principal); F12.20 Cannabis dependence, uncomplicated; Z79.899 Other long term (current) drug therapy; Z51.81 Encounter for therapeutic drug level monitoring | CPT/HCPCS: 99212 ==

== ENCOUNTER → 2023-03-11 09:58 | Outpatient (BNVA) | payer MEDICAID, SELFPAY | PROVIDERS: Visit Provider Nurse Practitioner Psychiatric/Mental Health | DX: Z51.81 Encounter for therapeutic drug level monitoring (principal); F11.20 Opioid dependence, uncomplicated | CPT/HCPCS: 99212 ==

== ENCOUNTER → 2023-04-02 10:01 | Outpatient (BNVA) | payer MEDICAID, SELFPAY | PROVIDERS: Visit Provider Nurse Practitioner Psychiatric/Mental Health | DX: Z51.81 Encounter for therapeutic drug level monitoring (principal); F11.20 Opioid dependence, uncomplicated | CPT/HCPCS: 80305; 99212 ==

== ENCOUNTER → 2023-04-27 10:28 | Outpatient (BNVA) | payer MEDICAID, SELFPAY | PROVIDERS: Visit Provider Nurse Practitioner Psychiatric/Mental Health | DX: Z51.81 Encounter for therapeutic drug level monitoring (principal); F11.20 Opioid dependence, uncomplicated | CPT/HCPCS: 80305; 99212 ==

== ENCOUNTER → 2023-05-18 10:19 | Outpatient (BNVA) | payer MEDICAID, SELFPAY | PROVIDERS: Visit Provider Nurse Practitioner Psychiatric/Mental Health | DX: Z51.81 Encounter for therapeutic drug level monitoring (principal); F11.20 Opioid dependence, uncomplicated | CPT/HCPCS: 99212 ==

== ENCOUNTER 2023-06-15 10:30 | Outpatient (AMB) | payer MEDICAID, SELFPAY ==
--- NOTE | 2023-06-15 10:32 | MHC.OFFVIS ---
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 [facility] Social History Alcohol intake: never Substance Use Type: Heroin, Marijuana and Opiates Review of Systems Const Reports as per HPI and Reports no additional complaints Physical Exam Vital Signs: Last Vital Signs Pulse 63 06/15/23 10:37 BP 114/76 06/15/23 10:37 Pulse Ox 96 06/15/23 10:37 Oxygen Delivery Method Room Air 06/15/23 10:37 Const General: cooperative and no acute distress Psych Appearance: well kempt Speech and movement: Clear speech present Attitude: cooperative Thought process: Normal thought process present Thought content: Normal thought content present Insight: Good insight present (Psych) Judgement: Good judgement present (Psych) Assessment & Plan Assessment & Plan (1) Opioid use disorder: Code(s): F11.90 - Opioid use, unspecified, uncomplicated Plan: continue suboxone at current dose follow up 4 weeks Medications: Refilled buprenorphine-naloxone 12-3 mg (Suboxone) 1 film sublingual DAILY 30 ea 0RF Coding Level of Care Code Est Pt Level 3 (02567) Diagnoses Opioid use disorder F11.90
[2023-06-15 10:37] VITALS: BP 114/76; PULSE 63; O2SAT 96
== END 2023-06-15 11:22 | disposition home or self-care (01) ==
LOC: HO.HCC 10:30
PROVIDERS: Visit Provider Nurse Practitioner Psychiatric/Mental Health
DX: F11.90 Opioid use, unspecified, uncomplicated (principal)
CPT/HCPCS: 99213

== ENCOUNTER → 2023-06-15 10:30 | Outpatient (BNVA) | payer MEDICAID, SELFPAY | PROVIDERS: Visit Provider Nurse Practitioner Psychiatric/Mental Health | DX: Z51.81 Encounter for therapeutic drug level monitoring (principal); F11.20 Opioid dependence, uncomplicated | CPT/HCPCS: 99213 ==

== ENCOUNTER 2023-07-10 09:56 | Outpatient (AMB) | payer MEDICAID, SELFPAY ==
--- NOTE | 2023-07-10 10:02 | MHC.OFFVIS ---
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 Doing well with recovery no questions or concerns at this time PFSH Social History Alcohol intake: never Substance Use Type: Heroin, Marijuana and Opiates Review of Systems Const Reports as per HPI and Reports no additional complaints Physical Exam Vital Signs: Last Vital Signs Pulse 82 07/10/23 10:05 BP 118/78 07/10/23 10:05 Pulse Ox 96 07/10/23 10:05 Oxygen Delivery Method Room Air 07/10/23 10:05 Const General: cooperative and no acute distress Psych Appearance: well kempt Speech and movement: Clear speech present Attitude: cooperative Thought process: Normal thought process present Thought content: Normal thought content present Insight: Good insight present (Psych) Judgement: Good judgement present (Psych) Assessment & Plan Assessment & Plan (1) Opioid use disorder: Code(s): F11.90 - Opioid use, unspecified, uncomplicated Plan: continue suboxone at current dose follow up 4 weeks Medications: Refilled buprenorphine-naloxone 12-3 mg (Suboxone) 1 film sublingual DAILY 30 ea 0RF Coding Level of Care Code Est Pt Level 3 (45804) Diagnoses Opioid use disorder F11.90
[2023-07-10 10:05] VITALS: BP 118/78; PULSE 82; O2SAT 96
== END 2023-07-10 10:40 | disposition home or self-care (01) ==
LOC: HO.HCC 09:56
PROVIDERS: Visit Provider Nurse Practitioner Psychiatric/Mental Health
DX: F11.90 Opioid use, unspecified, uncomplicated (principal)
CPT/HCPCS: 99213

== ENCOUNTER → 2023-07-10 09:56 | Outpatient (BNVA) | payer MEDICAID, SELFPAY | PROVIDERS: Visit Provider Nurse Practitioner Psychiatric/Mental Health | DX: F11.20 Opioid dependence, uncomplicated (principal) | CPT/HCPCS: 99212; 99213 ==

== ENCOUNTER 2023-08-07 10:04 | Outpatient (AMB) | payer MEDICAID, SELFPAY ==
--- NOTE | 2023-08-07 10:07 | A.OFFVIS_ITS ---
Intake Vital Signs 08/07/23 10:08 BP 110/74 Blood Pressure Location Lt radial Position Sitting Pulse 71 Pulse Source Pulse Oximeter Pulse Oximetry (%) 96 Oxygen Delivery Method Room Air Intake Visit Reasons: mat visit Intake Note: THE PATIENT PRESENTS FOR A MAT VISIT Area Director Of Home Health Sales Required: No Allergies LOBSTER Allergy (Severe, Uncoded 08/07/23 10:08) FACIAL SWELLING Do you need a note to return to daycare/school/sports/work: No HPI mat visit HPI Details Pt presents for OUD treatment follow up Currently being prescribed Suboxone 12mg QD Denies any side effects related to medication Still working 2 jobs Bright affect, feeling god about his recovery PFSH Social History Alcohol intake: never Substance Use Type: Heroin, Marijuana and Opiates Review of Systems Const Reports as per HPI and Reports no additional complaints Physical Exam Vital Signs: Last Vital Signs Pulse 71 08/07/23 10:08 BP 110/74 08/07/23 10:08 Pulse Ox 96 08/07/23 10:08 Oxygen Delivery Method Room Air 08/07/23 10:08 Const General: cooperative and no acute distress Psych Appearance: well kempt Speech and movement: Clear speech present Attitude: cooperative Thought process: Normal thought process present Thought content: Normal thought content present Insight: Good insight present (Psych) Judgement: Good judgement present (Psych) Assessment & Plan Assessment & Plan (1) Opioid use disorder: Code(s): F11.90 - Opioid use, unspecified, uncomplicated Plan: * continue suboxone at current dose * follow up 5weeks Medications: Refilled buprenorphine-naloxone 12-3 mg (Suboxone) 1 film sublingual DAILY 30 ea 0RF Coding Level of Care Code Est Pt Level 3 (51824) Diagnoses Opioid use disorder F11.90
[2023-08-07 10:08] VITALS: BP 110/74; PULSE 71; O2SAT 96
== END 2023-08-07 10:25 | disposition home or self-care (01) ==
LOC: HO.HCC 10:04
PROVIDERS: Visit Provider Nurse Practitioner Psychiatric/Mental Health
DX: F11.90 Opioid use, unspecified, uncomplicated (principal)
CPT/HCPCS: 99213

== ENCOUNTER → 2023-08-07 10:04 | Outpatient (BNVA) | payer MEDICAID, SELFPAY | PROVIDERS: Visit Provider Nurse Practitioner Psychiatric/Mental Health | DX: F11.20 Opioid dependence, uncomplicated (principal) | CPT/HCPCS: 99212 ==

== ENCOUNTER 2023-08-12 12:03 | Emergency (ER) | payer MEDICAID, SELFPAY ==
--- NOTE | ~2023-08-12 | CT_ITS ---
EXAMINATION: CT HEAD WITHOUT CONTRAST CT FACE WITHOUT CONTRAST CLINICAL INFORMATION: Head injury. Loss of consciousness. Emesis. COMPARISON: No relevant prior imaging. TECHNIQUE: Silk Folder images were obtained. CT imaging of the head and face was performed without contrast. Data was reformatted into multiplanar images at the acquisition workstation. This CT examination was performed using dose optimization techniques as appropriate, including one or more of the following: Automated exposure control, iterative reconstruction, and adjustment of technique factors (mA and/or kVp) according to patient size (this includes techniques or standardized protocols for targeted exams where dose is matched to indication/reason for exam). Fleischner Society criteria for the followup of incidental pulmonary nodules was implemented if appropriate. DLP: 922 mGy-cm. FINDINGS: There is no acute intracranial hemorrhage or abnormal extra-axial collection. No intracranial mass effect or midline shift. Lateral and third ventricles are normal. No hydrocephalus. Serrano-white matter differentiation is grossly preserved and there is no evidence of acute territorial infarct. The calvarium and skull base are intact. Mastoid air cells and middle ear cavities are well aerated. There is an age indeterminant fracture of the left zygomatic arch that demonstrates acute to subacute characteristics. The bone fragments are impacted by approximately 1 cm best visualized on axial image 166 of 243 series 4. There is only mild associated swelling within the overlying subcutaneous soft tissues. The nasal bones and pterygoid processes are intact. No acute mandibular fracture. No active paranasal sinus disease. Globes and extraocular muscles are grossly symmetric. Lamina papyracea and orbital floors are intact. Orbital apices are unremarkable. CT/CT facial bones wo IV con IMPRESSION: There is an age indeterminant fracture of the left zygomatic arch that demonstrates acute to subacute characteristics. The bone fragments are impacted by approximately 1 cm. Otherwise unremarkable examination. No acute intracranial hemorrhage. No intracranial mass effect or hydrocephalus.
--- NOTE | ~2023-08-12 | CT_ITS ---
EXAMINATION: CT HEAD WITHOUT CONTRAST CT FACE WITHOUT CONTRAST CLINICAL INFORMATION: Head injury. Loss of consciousness. Emesis. COMPARISON: No relevant prior imaging. TECHNIQUE: Senior Hr Manager images were obtained. CT imaging of the head and face was performed without contrast. Data was reformatted into multiplanar images at the acquisition workstation. This CT examination was performed using dose optimization techniques as appropriate, including one or more of the following: Automated exposure control, iterative reconstruction, and adjustment of technique factors (mA and/or kVp) according to patient size (this includes techniques or standardized protocols for targeted exams where dose is matched to indication/reason for exam). Fleischner Society criteria for the followup of incidental pulmonary nodules was implemented if appropriate. DLP: 922 mGy-cm. FINDINGS: There is no acute intracranial hemorrhage or abnormal extra-axial collection. No intracranial mass effect or midline shift. Lateral and third ventricles are normal. No hydrocephalus. Serrano-white matter differentiation is grossly preserved and there is no evidence of acute territorial infarct. The calvarium and skull base are intact. Mastoid air cells and middle ear cavities are well aerated. There is an age indeterminant fracture of the left zygomatic arch that demonstrates acute to subacute characteristics. The bone fragments are impacted by approximately 1 cm best visualized on axial image 166 of 243 series 4. There is only mild associated swelling within the overlying subcutaneous soft tissues. The nasal bones and pterygoid processes are intact. No acute mandibular fracture. No active paranasal sinus disease. Globes and extraocular muscles are grossly symmetric. Lamina papyracea and orbital floors are intact. Orbital apices are unremarkable. CT/CT head/brain wo IV con IMPRESSION: There is an age indeterminant fracture of the left zygomatic arch that demonstrates acute to subacute characteristics. The bone fragments are impacted by approximately 1 cm. Otherwise unremarkable examination. No acute intracranial hemorrhage. No intracranial mass effect or hydrocephalus.
[2023-08-12 12:07] VITALS: BP 152/70; PULSE 55; RESP 16; TEMP 36.6; O2SAT 98; BMI 25.1
--- NOTE | 2023-08-12 12:10 | ED_ITS ---
HPI - Head Injury General Chief complaint: General Medical Stated complaint: L Side Facial Pain S/P Fall 08/12/23 Time Seen by Provider: 08/12/23 13:51 Source: patient Mode of arrival: ambulatory Limitations: no limitations History of Present Illness HPI Narrative: Patient is a 37 year old assigned male at with a history of substance use disorder presenting to the emergency department today with left sided facial pain after a beam fell and hit him in the face. Patient states that he was working on a porch when he fell and then a beam landed on his face. Patient states that he lost consciousness for an unknown amount of time and when he woke up, he vomited. Patient states that he is unable to open his mouth wide secondary to pain. Patient denies any dizziness, lightheadedness, abdominal pain, nausea, vomiting, fever, chills, blurry vision, double vision, loss of vision, chest pain, difficulty breathing, shortness of breath, back pain, night sweats, pain with urination, increased urinary frequency, increased urinary urgency, blood in his urine or stool, syncope or a near syncopal episode, bowel incontinence, bladder incontinence, bowel retention, bladder retention, or any other complaints at this time. MD Complaint: head injury Onset (ago): hour(s) Loss of Consciousness: yes Location of injury: face Severity: moderate Severity scale (1-10): 6 Quality: aching Other Injuries: none Associated symptoms: nausea and vomiting Related Data Previous Rx's Medication Instructions Recorded naloxone 4 mg/actuation nasal 4 mg intranasal Q2M PRN opioid 11/19/22 spray (Narcan) overdose #2 ea buprenorphine 12 mg-naloxone 3 mg 1 film sublingual DAILY #30 ea 08/07/23 sublingual film (Suboxone) Allergies Allergy/AdvReac Type Severity Reaction Status Date / Time LOBSTER Allergy Severe FACIAL Uncoded 08/07/23 10:08 SWELLING Review of Systems Constitutional: Constitutional: Reports no additional constitutional complaints, Denies chills, Denies fever(s) and Denies night sweats Eyes: Eyes: Reports no additional eye complaints, Denies blurry vision, Denies change in vision, Denies diplopia, Denies eye discharge, Denies loss of vision and Reports eye pain (left side of the face) ENT: Denies dizziness Comments: jaw pain Cardiovascular: Cardiovascular: Reports no additional cardiovascular complaints, Denies chest pain, Denies lightheadedness, Denies Loss of Consciousness and Denies dyspnea Respiratory: Respiratory: Reports no additional respiratory complaints and Denies dyspnea Gastrointestinal: Gastrointestinal: Reports no additional gastrointestinal complaints, Denies abdominal pain, Denies melena, Denies hematochezia, Denies change in bowel habits, Denies change in stool character, Reports nausea and Reports vomiting Genitourinary: Genitourinary: Reports no additional male genitourinary complaints, Denies hematuria, Denies oliguria, Denies difficulty urinating, Denies dysuria, Denies urinary frequency, Denies urinary hesitancy, Denies urinary incontinence and Denies urinary urgency Musculoskeletal: Musculoskeletal: Reports no additional musculoskeletal complaints, Denies numbness and Denies tingling Neurologic: Denies dizziness, Denies loss of vision, Denies numbness and Denies tingling Psychiatric: Psychiatric: Reports no additional psychiatric complaints Endocrine: Endocrine: Reports no additional endocrine complaints Hematologic/Lymphatic: Hematologic/Lymphatic: Reports no additional hematologic/lymphatic complaints Allergic/Immunologic: Allergic/Immunologic: Reports no additional allergi c/immunologic complaints PMFSH Past Medical History Attestation statement: The following information was validated with the patient. Source: old records reviewed and nursing notes reviewed Social History Social History Alcohol intake: never Substance Use Type: Heroin, Marijuana and Opiates Advance Directives: No Advance Directives Information Provided: Yes Physical Exam Vital Signs: Vital Signs: Last Vital Signs Temp 98 F 08/12/23 12:07 Pulse 55 08/12/23 12:07 Resp 16 08/12/23 12:07 BP 152/70 H 08/12/23 12:07 Pulse Ox 98 08/12/23 12:07 O2 Del Method Room Air 08/12/23 12:07 BMI result Body Mass Index 25.1 Const: General: cooperative, no acute distress, alert and awake Nutritional Appearance: well nourished Orientation/consciousness: patient oriented x3 Limitations: no limitations HEENT: Other: bruising present to the left side of the face with an obvious indentation of the left zygomatic area, pain to palpation of the area, left eye continually watering Ears: hearing grossly normal bilaterally and external ears normal General nose exam: Normal external nose present, no nasal discharge noted and no epistaxis Face and sinus: Yes normal facial exam, No abrasion and No laceration Mouth: Normal oral and palatal mucosa present, no drooling and no muffled voice Eyes: General: appearance normal, both eyes and all related structures Periorbital: periorbital findings normal Eyelids: Yes eyelids normal Conjunctivae: conjunctivae normal Pupils: Equal, round and reactive pupils present EOM: EOMs intact bilaterally Neck: Neck: Yes normal visual inspection, Yes full ROM and Yes no lymphadenopathy Chest: Chest palpation & inspection: normal inspection of the chest Resp: Effort & Inspection: normal respiratory effort and able to speak in complete sentences GI: Inspection: Yes normal to inspection Neuro: General: patient oriented x3 and moves all extremities Cranial nerves: Yes Equal, round and reactive pupils present Cognition (Neuro): normal cognition Motor exam (neuro): 5/5 motor strength present throughout Sensory Exam: Normal double simultaneous stimulation for sensation Coordination: [id number] test normal Extrem: General: Yes normal to inspection, Yes full ROM and Yes capillary refill normal Psych: Appearance: grossly normal Mental Status: mental status grossly normal Affect: normal affect Attitude: cooperative Thought process: Normal thought process present Thought content: Normal thought content present Insight: Good insight present (Psych) Course Course Course Narrative: RME: 37yo M w/PMHx opiate use c/o L sided facial pain, +LOC, nausea and +emesis s/p large wood beam falling on face 20mins [employer]UM[employer] TEMP. states was building porch at work when beam fell. +dizziness after incident, denies taking AC +L sides facial ttp, ?deformity vs normal anatomy. No trismus, tearful Head/Facial CT ordered Full HPI, ROS and PE to be performed by primary ED provider. Medications Administered Discontinued Medications Generic Name Dose Route Start Last Admin Trade Name Deangelo PRN Reason Stop Dose Admin Acetaminophen 650 mg 08/12/23 13:53 08/12/23 13:58 Acetaminophen 325 Mg Tablet PO 08/12/23 13:54 650 mg ONCE ONE Administration Ketorolac Tromethamine 15 mg 08/12/23 13:53 08/12/23 13:58 Ketorolac Tromethamine 15 Mg/Ml Vial IM 08/12/23 13:54 15 mg ONCE ONE Administration Ondansetron HCl 4 mg 08/12/23 12:12 08/12/23 12:16 Ondansetron Odt 4 Mg Tab.Rapdis TRANSLINGU 08/12/23 12:13 4 mg ONCE ONE Administration Medical Decision Making Medical Decision Making [facility] Narrative: Patient is a 37 year old assigned male at with a history of opioid use disorder presenting to the emergency department today with left sided facial pa in after a traumatic incident. Patient's physical exam was as noted in the physical exam portion of this chart. Patient's head CT showed no acute process. Patient's facial CT showed a left Zygomatic arch fracture with 1cm of indentation. I called and spoke to Dr. Alcantara at [facility] who recommended placing the patient in a c-collar and transferring him directly to their ED. I explained my physical exam findings as well as all test results to the patient. I answered all questions asked by the patient. Patient verbalized agreement and understanding with this treatment plan and transfer. Differential Diagnosis Differential Diagnoses: The differential diagnosis associated with the presentation includes Traumatic head injury Left zygomatic arch fracture Admission/Observation Consideration of admission/observation: Escalation of care including admis samson/observation considered Patient to be transferred to [facility] ED Consult Healthcare Provider Management of the patient was discussed with: Order Runner (spoke with Dr. Alcantara as noted in the MDM portion of this note.) Independent Interpretation I performed an independent interpretation of an: CT Scan Interpretation: My interpretation is in agreement with the radiologist's impression of these imaging studies. EXAMINATION: CT HEAD WITHOUT CONTRAST CT FACE WITHOUT CONTRAST CLINICAL INFORMATION: Head injury. Loss of consciousness. Emesis. COMPARISON: No relevant prior imaging. TECHNIQUE: Senior Programmer images were obtained. CT imaging of the head and face was performed without contrast. Data was reformatted into multiplanar images at the acquisition workstation. This CT examination was performed using dose optimization techniques as appropriate, including one or more of the following: Automated exposure control, iterative reconstruction, and adjustment of technique factors (mA and/or kVp) according to patient size (this includes techniques or standardized protocols for targeted exams where dose is matched to indication/reason for exam). Fleischner Society criteria for the followup of incidental pulmonary nodules was implemented if appropriate. DLP: 922 mGy-cm. FINDINGS: There is no acute intracranial hemorrhage or abnormal extra-axial collection. No intracranial mass effect or midline shift. Lateral and third ventricles are normal. No hydrocephalus. Serrano-white matter differentiation is grossly preserved and there is no evidence of acute territorial infarct. The calvarium and skull base are intact. Mastoid air cells and middle ear cavities are well aerated. There is an age indeterminant fracture of the left zygomatic arch that demonstrates acute to subacute characteristics. The bone fragments are impacted by approximately 1 cm best visualized on axial image 166 of 243 series 4. There is only mild associated swelling within the overlying subcutaneous soft tissues. The nasal bones and pterygoid processes are intact. No acute mandibular fracture. No active paranasal sinus disease. Globes and extraocular muscles are grossly symmetric. Lamina papyracea and orbital floors are intact. Orbital apices are unremarkable. CT/CT head/brain wo IV con IMPRESSION: There is an age indeterminant fracture of the left zygomatic arch that demonstrates acute to subacute characteristics. The bone fragments are impacted by approximately 1 cm. Otherwise unremarkable examination. No acute intracranial hemorrhage. No intracranial mass effect or hydrocephalus. Dictated By: Qasim Robertson MD Signed By: Electronically signed by Qasim Robertson MD 08/12/23 1343 Radiology Impression Discussion of test interpretation with radiology: I have reviewed the radiologi st's reading. Critical Care Time Critical Care Time Critical Care Time: Yes Total Critical Care Time: 45 Attestation: I spent 45 minutes of Critical Care Time with this patient. This does not include time spent on separately reported billable procedures. Discharge Plan Discharge Clinical Impression: Closed fracture of zygomatic arch Patient Disposition: [facility] Transfer Details: To [facility] ED Prescriptions: No Action naloxone [Narcan] 4 mg/actuation spray,non-aerosol 4 mg intranasal Q2M PRN (Reason: opioid overdose) Qty: 2 0RF Rx Instructions: spray 1 dose into ONE nostril; alternate nostrils w each dose until help arrives buprenorphine-naloxone [Suboxone] 12-3 mg film 1 film sublingual DAILY Qty: 30 0RF
[2023-08-12] MEDS: Ondansetron ODT 4 MG TAB.RAPDIS TRANSLINGU ×2 (12:16→15:16)
[2023-08-12] MEDS: Acetaminophen 325 MG TABLET 650 MG PO (13:58)
[2023-08-12] MEDS: Ketorolac Tromethamine 15 MG/ML VIAL IM (13:58)
--- NOTE | 2023-08-12 14:26 | PC.NURSE ---
C-collar applied w/ PA Phyllis at bedside per [facility] trauma MD Nano. well tolerated by pt. endorces nausea has improved since PO zofran, medicated per JAN for 08/25 pain- plan is tx to [facility] for trauma eval
[2023-08-12 14:40] VITALS: BP 120/72; PULSE 66; RESP 18; TEMP 36.6; O2SAT 99
--- NOTE | 2023-08-12 14:49 | PC.NURSE ---
ED nurse to nurse called to JULIANNE Tony accepting MD [place] pt awating BLS transfler to [facility]
== END 2023-08-12 15:45 | disposition short-term general hospital (02) ==
PROVIDERS: Emergency Provider Emergency Medicine
DX: S02.40FA Zygomatic fracture, left side, initial encounter for closed fracture (principal); R55 Syncope and collapse; R11.2 Nausea with vomiting, unspecified; R51.9 Headache, unspecified; Y29.XXXA Contact with blunt object, undetermined intent, initial encounter; Y93.9 Activity, unspecified; Y92.9 Unspecified place or not applicable; Y99.9 Unspecified external cause status; Z79.899 Other long term (current) drug therapy
CPT/HCPCS: 70450; 70486; 96372; 99285; J1885

== ENCOUNTER 2023-09-11 10:00 | Outpatient (AMB) | payer MEDICAID, SELFPAY ==
--- NOTE | 2023-09-11 10:02 | MHC.OFFVIS ---
Intake Vital Signs 09/11/23 10:06 BP 110/68 Blood Pressure Location Lt radial Position Sitting Pulse 54 Pulse Source Pulse Oximeter Pulse Oximetry (%) 74 L Oxygen Delivery Method Room Air Intake Visit Reasons: mat visit Intake Note: the patient presents for a mat visit Allergies LOBSTER Allergy (Severe, Uncoded 09/11/23 10:07) FACIAL SWELLING Do you need a note to return to daycare/school/sports/work: No HPI mat visit HPI Details Patient presents for follow up On 08/12 had a beam hit his face and fractured zygomatic arch Required surgery--out of work Pain well managed now. No concerns related to DAKOTAH treatment [facility] Social History Alcohol intake: never Substance Use Type: Heroin, Marijuana and Opiates Review of Systems Const Reports as per HPI Physical Exam Vital Signs: Last Vital Signs Pulse 54 09/11/23 10:06 BP 110/68 09/11/23 10:06 Pulse Ox 74 L 09/11/23 10:06 Oxygen Delivery Method Room Air 09/11/23 10:06 Const General: cooperative and no acute distress Psych Appearance: well kempt Speech and movement: Clear speech present Attitude: cooperative Thought process: Normal thought process present Thought content: Normal thought content present Insight: Good insight present (Psych) Judgement: Good judgement present (Psych) Assessment & Plan Assessment & Plan (1) Opioid use disorder: Code(s): F11.90 - Opioid use, unspecified, uncomplicated Plan: continue suboxone at current dose follow up 10/25 Rx not due until 09/22 Medications: Refilled buprenorphine-naloxone 12-3 mg (Suboxone) 1 film sublingual DAILY 30 ea 0RF Coding Level of Care Code Est Pt Level 3 (84388) Diagnoses Opioid use disorder F11.90
[2023-09-11 10:06] VITALS: BP 110/68; PULSE 54; O2SAT 74
== END 2023-09-11 10:31 | disposition home or self-care (01) ==
PROVIDERS: Visit Provider Nurse Practitioner Psychiatric/Mental Health
DX: F11.90 Opioid use, unspecified, uncomplicated (principal)
CPT/HCPCS: 99213

== ENCOUNTER → 2023-09-11 10:00 | Outpatient (BNVA) | payer MEDICAID, SELFPAY | PROVIDERS: Visit Provider Nurse Practitioner Psychiatric/Mental Health | DX: F11.20 Opioid dependence, uncomplicated (principal) | CPT/HCPCS: 99212 ==

== ENCOUNTER 2023-11-03 16:57 | Outpatient (AMB) | payer MEDICAID, SELFPAY ==
[2023-11-03 17:04] VITALS: BP 118/78; PULSE 74; O2SAT 96
--- NOTE | 2023-11-03 17:04 | MHC.AM.SUB ---
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 Is coming up on 1 year in recovery! Patient became tearful in visit realizing he has been in recovery for nearly a year. Denies any concerns related to suboxone dose or side effects. [facility] Social History Alcohol intake: never Substance Use Type: Heroin, Marijuana and Opiates Review of Systems Const Reports as per HPI Physical Exam Vital Signs: Last Vital Signs Pulse 74 11/03/23 17:04 BP 118/78 11/03/23 17:04 Pulse Ox 96 11/03/23 17:04 Oxygen Delivery Method Room Air 11/03/23 17:04 Const General: cooperative and healthy appearing Resp Effort & Inspection: normal respiratory effort Psych Appearance: grossly normal Mental Status: mental status grossly normal Speech and movement: Normal speech and movement present Attitude: cooperative Thought content: Normal thought content present Assessment & Plan Assessment & Plan (1) Opioid use disorder: Code(s): F11.90 - Opioid use, unspecified, uncomplicated Plan: Continue suboxone at current dose Follow up 4 weeks Rx not due until 11/30 Coding Level of Care Code Est Pt Level 3 (17698) Diagnoses Opioid use disorder F11.90
== END 2023-11-03 17:14 | disposition home or self-care (01) ==
PROVIDERS: Visit Provider Nurse Practitioner Family
DX: F11.90 Opioid use, unspecified, uncomplicated (principal)
CPT/HCPCS: 99213

== ENCOUNTER → 2023-11-03 16:57 | Outpatient (BNVA) | payer MEDICAID, SELFPAY | PROVIDERS: Visit Provider Nurse Practitioner Family | DX: F11.20 Opioid dependence, uncomplicated (principal) | CPT/HCPCS: 99212 ==

== ENCOUNTER 2023-12-15 16:52 | Outpatient (AMB) | payer MEDICAID, SELFPAY ==
--- NOTE | 2023-12-15 16:53 | MHC.AM.SUB ---
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 He is tolerating the 8mg daily dose well, has no concerns He wishes to try the sublocade injection [facility] Social History Alcohol intake: never Substance Use Type: Heroin, Marijuana and Opiates Review of Systems Const Reports as per HPI Physical Exam Vital Signs: Last Vital Signs Pulse 66 12/15/23 16:58 BP 114/70 12/15/23 16:58 Pulse Ox 96 12/15/23 16:58 Oxygen Delivery Method Room Air 12/15/23 16:58 Const General: cooperative, healthy appearing and no acute distress Resp Effort & Inspection: normal respiratory effort and able to speak in complete sentences Psych Appearance: grossly normal Mental Status: mental status grossly normal Affect: normal affect Attitude: cooperative Thought process: Normal thought process present Assessment & Plan Assessment & Plan (1) Opioid use disorder: Code(s): F11.90 - Opioid use, unspecified, uncomplicated Plan: Continue suboxone at current dose Follow up 4 weeks Sublocade order placed Rx not due yet, pt to call when he needs more Coding Level of Care Code Est Pt Level 3 (03691) Diagnoses Opioid use disorder F11.90
[2023-12-15 16:58] VITALS: BP 114/70; PULSE 66; O2SAT 96
== END 2023-12-15 17:15 | disposition home or self-care (01) ==
PROVIDERS: Visit Provider Nurse Practitioner Family
DX: F11.90 Opioid use, unspecified, uncomplicated (principal)
CPT/HCPCS: 99213

== ENCOUNTER → 2023-12-15 16:52 | Outpatient (BNVA) | payer MEDICAID, SELFPAY | PROVIDERS: Visit Provider Nurse Practitioner Family | DX: F11.20 Opioid dependence, uncomplicated (principal) | CPT/HCPCS: 99212 ==

== ENCOUNTER 2024-01-20 16:01 | Outpatient (AMB) | payer OTHER, SELFPAY ==
--- NOTE | 2024-01-20 16:06 | A.OFFVISCC_ITS ---
Intake Vital Signs 01/20/24 16:12 BP 124/70 Blood Pressure Location Lt radial Position Sitting Pulse 66 Pulse Source Pulse Oximeter Pulse Oximetry (%) 97 Oxygen Delivery Method Room Air Intake Visit Reasons: MAT visit/SUB inj Intake Note: the patient is here for a sub inj Informatics Analyst Required: No Allergies LOBSTER Allergy (Severe, Uncoded 01/20/24 16:12) FACIAL SWELLING Do you need a note to return to daycare/school/sports/work: No HPI MAT visit/SUB inj HPI Details Patient presents for first sublocade injection Has no concerns for recovery at this time Has never had sublocade shot before 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 [facility] Social History Alcohol intake: never Substance Use Type: Heroin, Marijuana and Opiates Review of Systems Const Reports as per HPI Physical Exam Vital Signs: Last Vital Signs Pulse 66 01/20/24 16:12 BP 124/70 01/20/24 16:12 Pulse Ox 97 01/20/24 16:12 Oxygen Delivery Method Room Air 01/20/24 16:12 Const General: cooperative and healthy appearing Resp Effort & Inspection: normal respiratory effort Psych Appearance: grossly normal Mental Status: mental status grossly normal Speech and movement: Normal speech and movement present Affect: normal affect Attitude: cooperative Office Meds Sublocade 300 mg/1.5 mL solution,extended release subcutaneous syringe Performing Provider: Deepa Avina NP Performing Location: [facility] Administered by: Gabriella Taylor RN on 01/20/24 16:29 Dose Route Admin Location Dispensed Lot Number Expiration Date [facility] Plant Control Aide 300 mg subcut RLQ 1.5 mL [id number] 12/17/24 [address]-7 [employer]. Comments: Patient tolerated injection well with no stated or noted side effects. will call [facility] with any questions or concerns. Assessment & Plan Assessment & Plan (1) Opioid use disorder: Code(s): F11.90 - Opioid use, unspecified, uncomplicated Plan: -Med education provided -Educated patient on signs and symptoms of infection -Call clinic with any concerns or questions -Follow up 4 weeks Orders: Orders AMB Buprenorphine Injection 01/20/24 F11.90 - Opioid use, unspecified, uncomplicated Medications: Refilled buprenorphine-naloxone 8-2 mg (Suboxone) 1 film sublingual BID 8 ea 0RF Coding Level of Care Code Est Pt Level 3 (05689) Diagnoses Opioid use disorder F11.90
[2024-01-20 16:12] VITALS: BP 124/70; PULSE 66; O2SAT 97
== END 2024-01-20 16:42 | disposition home or self-care (01) ==
PROVIDERS: Visit Provider Nurse Practitioner Family
DX: F11.90 Opioid use, unspecified, uncomplicated (principal)
CPT/HCPCS: 99213

== ENCOUNTER → 2024-01-20 16:01 | Outpatient (BNVA) | payer OTHER, SELFPAY | PROVIDERS: Visit Provider Nurse Practitioner Family | DX: F11.20 Opioid dependence, uncomplicated (principal); Z51.81 Encounter for therapeutic drug level monitoring | CPT/HCPCS: 96372; Q9992 ==

== ENCOUNTER 2024-02-17 16:30 | Outpatient (AMB) | payer OTHER, SELFPAY ==
--- NOTE | 2024-02-17 16:33 | MHC.AM.SUB ---
Intake Vital Signs 02/17/24 16:37 BP 124/68 Blood Pressure Location Lt radial Position Sitting Pulse 90 Pulse Source Pulse Oximeter Pulse Oximetry (%) 98 Oxygen Delivery Method Room Air Intake Visit Reasons: SUB inj Intake Note: the patient presents for a sub inj Financial Brokers Required: No Allergies LOBSTER Allergy (Severe, Uncoded 02/17/24 16:38) FACIAL SWELLING Do you need a note to return to daycare/school/sports/work: No PFSH Social History Alcohol intake: never Substance Use Type: Heroin, Marijuana and Opiates Assessment & Plan Assessment & Plan Medications: Refilled buprenorphine ER (Sublocade) 300 mg (1.5 mL) subcut .every 28 days 1.5 mL 1RF Coding
[2024-02-17 16:37] VITALS: BP 124/68; PULSE 90; O2SAT 98
--- NOTE | 2024-02-17 16:43 | AM.OFFVISNUR ---
Intake Vital Signs 02/17/24 16:37 BP 124/68 Blood Pressure Location Lt radial Position Sitting Pulse 90 Pulse Source Pulse Oximeter Pulse Oximetry (%) 98 Oxygen Delivery Method Room Air Intake Visit Reasons: SUB inj Allergies LOBSTER Allergy (Severe, Uncoded 02/17/24 16:38) FACIAL SWELLING Office Meds Sublocade 300 mg/1.5 mL solution,extended release subcutaneous syringe Performing Provider: Deepa Avina NP Performing Location: [facility] Administered by: Gabriella Taylor RN on 02/17/24 16:55 Dose Route Admin Location Dispensed Lot Number Expiration Date [facility] Fine Arts Teacher 300 mg subcut LLQ 1.5 mL [id number] 01/14/25 [address]-3 [employer]. Coding Assessment & Plan Assessment & Plan Orders: Orders AMB Buprenorphine Injection Today F11.90 - Opioid use, unspecified, uncomplicated Medications: Refilled buprenorphine ER (Sublocade) 300 mg (1.5 mL) subcut .every 28 days 1.5 mL 1RF
== END 2024-02-17 16:55 | disposition home or self-care (01) ==
DX: F11.90 Opioid use, unspecified, uncomplicated (principal)

== ENCOUNTER → 2024-02-17 16:30 | Outpatient (BNVA) | payer OTHER, SELFPAY | DX: F11.90 Opioid use, unspecified, uncomplicated (principal); Z51.81 Encounter for therapeutic drug level monitoring | CPT/HCPCS: 96372; Q9992 ==

== ENCOUNTER 2024-04-05 17:04 | Outpatient (AMB) | payer OTHER, SELFPAY ==
[2024-04-05 17:13] VITALS: BP 130/75; PULSE 88; RESP 18; O2SAT 98
--- NOTE | 2024-04-05 17:13 | MHC.AM.SUB ---
Vital Signs 04/05/24 17:13 BP 130/75 Blood Pressure Location Rt radial Position Sitting Respiration 18 Pulse 88 Pulse Source Pulse Oximeter Pulse Oximetry (%) 98 Intake Visit Reasons: Sub inj Allergies LOBSTER Allergy (Severe, Uncoded 02/17/24 16:38) FACIAL SWELLING [facility] Social History Alcohol intake: never Substance Use Type: Heroin, Marijuana and Opiates Physical Exam Vital Signs: Last Vital Signs Pulse 88 04/05/24 17:13 Resp 18 04/05/24 17:13 BP 130/75 04/05/24 17:13 Pulse Ox 98 04/05/24 17:13 Assessment & Plan Assessment & Plan (1) Opioid use disorder: Code(s): F11.90 - Opioid use, unspecified, uncomplicated Category: Medical Orders: Orders AMB Buprenorphine Injection Today F11.90 - Opioid use, unspecified, uncomplicated Medications: New Sublocade ER (buprenorphine) 300 mg (1.5 mL) subcut ONCE 1.5 mL 0RF NS F11.90 - Opioid use, unspecified, uncomplicated Refilled buprenorphine ER (Sublocade) 300 mg (1.5 mL) subcut .every 28 days 1.5 mL 3RF
--- NOTE | 2024-04-05 17:33 | AM.OFFVISNUR ---
Intake Vital Signs 04/05/24 17:13 BP 130/75 Blood Pressure Location Rt radial Position Sitting Respiration 18 Pulse 88 Pulse Source Pulse Oximeter Pulse Oximetry (%) 98 Intake Visit Reasons: Sub inj Allergies LOBSTER Allergy (Severe, Uncoded 02/17/24 16:38) FACIAL SWELLING Nursing Note Pt missed last injection due to work but reports he is not feeling any W/D sx. Pt reports ongoing sobriety on sublocade injection. He presents as loosing weight and reports that he has difficulty eating due to accident at work with his jaw. Pt was given supplements and resources for nutrition supplements. Pt received sublocade 300mg in RLQ as per MD orders. Pt tolerated injection well and was educated on comfort measures following injection as well as care of injection site. Pt denies SE of last injection. Pt to F/U in clinic in one month. Office Meds Sublocade 300 mg/1.5 mL solution,extended release subcutaneous syringe Performing Provider: Rosalind Dai CNP Performing Location: [facility] Administered by: Drea Beck RN on 04/05/24 17:27 Dose Route Admin Location Dispensed Lot Number Expiration Date [facility] Wash Driller Helper 300 mg subcut 1.5 mL [id number] 01/14/25 [address]-6 [employer]. Comments: Pt tolerated injection well. Denies SE or W/D and none noted Educated on S&S to report to clinic. Pt to F/U in 1 month. Coding Diagnoses Opioid use disorder F11.90 Assessment & Plan Assessment & Plan (1) Opioid use disorder: Code(s): F11.90 - Opioid use, unspecified, uncomplicated Category: Medical Orders: Orders AMB Buprenorphine Injection Today F11.90 - Opioid use, unspecified, uncomplicated Medications: Refilled buprenorphine ER (Sublocade) 300 mg (1.5 mL) subcut .every 28 days 1.5 mL 3RF
== END 2024-04-05 17:45 ==
DX: F11.90 Opioid use, unspecified, uncomplicated (principal)

== ENCOUNTER → 2024-04-05 17:04 | Outpatient (BNVA) | payer OTHER, SELFPAY | DX: F11.90 Opioid use, unspecified, uncomplicated (principal) | CPT/HCPCS: 96372; Q9992 ==

== ENCOUNTER 2024-05-03 17:05 | Outpatient (AMB) | payer OTHER, SELFPAY ==
--- NOTE | 2024-05-03 17:09 | AM.OFFVISNUR ---
Intake Vital Signs 05/03/24 17:27 BP 114/84 Blood Pressure Location Lt brachial Position Sitting Respiration 16 Pulse 72 Pulse Source Pulse Oximeter Pulse Oximetry (%) 96 Oxygen Delivery Method Room Air Intake Visit Reasons: Sub Inj Allergies LOBSTER Allergy (Severe, Uncoded 02/17/24 16:38) FACIAL SWELLING Nursing Note Pt in for monthly sublocade injection. Pt received 300mg in LLQ of abd. as per MD orders. Pt tolerated injection well and denies any SE. Pt educated on aftercare of injection site and S/S to report to clinic. Pt to return to clinic in one month for F/U injection. Pt still having issues chewing. He was encouraged to F/U with PCP. Pt interested in possible transition to [place]. Written information given to pt. and he will discuss further at next visit. Office Meds Sublocade 300 mg/1.5 mL solution,extended release subcutaneous syringe Performing Provider: Rosalind Dai CNP Performing Location: [facility] Administered by: Drea Beck RN on 05/03/24 17:30 Dose Route Admin Location Dispensed Lot Number Expiration Date [facility] Coord[facility] Of Health Services 300 mg subcut LLQ of abd 1.5 mL [id number] 01/14/25 [address]-2 [employer]PP. Comments: Pt tolerated injection well. No S/S of infection in old inj. site and no SE reported. Coding Assessment & Plan Assessment & Plan Orders: Orders AMB Buprenorphine Injection Today F11.90 - Opioid use, unspecified, uncomplicated Medications: New Sublocade ER (buprenorphine) 300 mg (1.5 mL) subcut ONCE 1.5 mL 0RF NS F11.90 - Opioid use, unspecified, uncomplicated
[2024-05-03 17:27] VITALS: BP 114/84; PULSE 72; RESP 16; O2SAT 96
== END 2024-05-03 17:30 ==
DX: F11.90 Opioid use, unspecified, uncomplicated (principal)

== ENCOUNTER → 2024-05-03 17:05 | Outpatient (BNVA) | payer SELFPAY | DX: F11.90 Opioid use, unspecified, uncomplicated (principal) | CPT/HCPCS: 96372; Q9992 ==

== ENCOUNTER 2024-06-03 16:09 | Outpatient (AMB) | payer OTHER, SELFPAY ==
--- NOTE | 2024-06-03 16:35 | AM.OFFVISNUR ---
Vital Signs 06/03/24 16:44 Weight 155 lb Intake Visit Reasons: Sub Inj Allergies LOBSTER Allergy (Severe, Uncoded 02/17/24 16:38) FACIAL SWELLING Nursing Note Patient to clinic 06/03 for sublocade 300mg injection. He was in good spirits, smiling, is eating better, and asked to weigh himself. He had lost weight in previous visits due to a jaw injury. Pt states recovery is going well, he acknowledges sleeping better and feeling better . Will follow up in 4 weeks, and obtain another weight. Office Meds Sublocade 300 mg/1.5 mL solution,extended release subcutaneous syringe Performing Provider: Rosalind Dai CNP Performing Location: [facility] Administered by: Gabriella Taylor RN on 06/03/24 16:38 Dose Route Admin Location Dispensed Lot Number Expiration Date [facility] Blue Split Trimmer 300 mg subcut LLQ 1.5 mL [id number] 04/16/25 [address]-8 [employer]. Assessment & Plan Assessment & Plan Orders: Orders AMB Buprenorphine Injection - Patient Supplied 06/03/24 F11.90 - Opioid use, unspecified, uncomplicated
== END 2024-06-03 16:30 ==
DX: F11.90 Opioid use, unspecified, uncomplicated (principal)

== ENCOUNTER → 2024-06-03 16:09 | Outpatient (BNVA) | payer SELFPAY | DX: F11.20 Opioid dependence, uncomplicated (principal) | CPT/HCPCS: 96372; Q9992 ==

== ENCOUNTER 2024-07-20 08:43 | Emergency (ER) | payer SELFPAY ==
[2024-07-20 08:52] VITALS: BP 139/88; PULSE 65; RESP 18; TEMP 36.6; O2SAT 98; BMI 20.9
--- NOTE | 2024-07-20 08:56 | ED_ITS ---
HPI - Nausea/Vomiting/Diarrhea General Chief complaint: Nausea/Vomiting/Diarrhea Stated complaint: vomiting Time Seen by Provider: 07/20/24 08:46 Source: patient and old records reviewed Mode of arrival: ambulatory Limitations: no limitations History of Present Illness ED Provider: GREGORY PETERSON Narrative: 38 yo male with PMH of opiate use disorder here with c/o n/v body aches starting this AM and he states he is in withdrawal. His last suboxone injection was 07/04 and he couldn't get one in june due to insurance issues. He is very compliant and has not been using any street drugs or opiates to supplement. He follows regularly with our CARE team. He denies travel, abx use, food exposures. MD elicited complaint: nausea and vomiting Pertinent past history: other (opiate use disorder) Onset (ago): hour(s) (few) Description of vomiting: watery Associated nausea: Yes Associated abdominal pain: Yes Location of pain: diffuse Radiation: diffuse Pain consistency: intermittent Severity: mild Quality: cramping Exacerbating factors: movement Relieving factors: none Context: other Associated symptoms: myalgias, loss of appetite, malaise and nausea/vomiting Related Data Previous Rx's ?Medication ?Instructions ?Recorded naloxone 4 mg/actuation nasal 4 mg intranasal Q2M PRN opioid 11/19/22 spray (Narcan) overdose #2 ea buprenorphine 8 mg-naloxone 2 mg 1 film sublingual BID #8 ea 01/18/24 sublingual film (Suboxone) buprenorphine 100 mg/0.5 mL 100 mg (0.5 mL) subcut ONCE #0.5 mL 07/01/24 solution,exten.rel.subcutaneous syringe (Sublocade) ondansetron 4 mg disintegrating 4 mg PO Q8H PRN nausea and 07/20/24 tablet vomiting #20 tabs Allergies Allergy/AdvReac Type Severity Reaction Status Date / Time LOBSTER Allergy Severe FACIAL Uncoded 07/20/24 08:54 SWELLING Review of Systems 2 Review of Systems: Constitutional : No Weight loss, No Fever, No Chills ENT/Mouth : No sore throat, No Rhinorrhea Eyes: No Swelling, No Redness Cardiovascular : No Chest Pain, No SOB, NoEdema Respiratory : No Cough, No Sputum, No Wheezing Gastrointestinal : Positive Nausea, Positive Vomiting, no Diarrhea, positive abdominal Pain, No Hematochezia, No Melena Genitourinary : No Dysuria, No Urinary Frequency, No Hematuria, No Urgency Musculoskeletal : No joint pain, pos Myalgias, No Joint Swelling Skin : No Skin Lesions, No rash Neuro : pos Weakness, No Numbness, No Dizziness, No Headache Psych : No Anxiety/Panic, No Depression All other systems reviewed and are negative. Gastrointestinal: Gastrointestinal: Reports nausea PMFSH Past Medical History Attestation statement: The following information was validated with the patient. Source: old records reviewed Medical History Opioid use disorder Social History Social History Alcohol intake: former Smoked in Last 30 Days: No Use of substances other than those prescribed or required for medical reasons: Yes Substance Use Type: Marijuana Substance Use Frequency: Daily Advance Directives: No Do you have a plan to hurt others: No Plan Physical Exam 2 Vital Signs: Vital Signs: Last Vital Signs Temp 97.9 F 07/20/24 08:52 Pulse 65 07/20/24 08:52 Resp 18 07/20/24 08:52 BP 139/88 07/20/24 08:52 Pulse Ox 98 07/20/24 08:52 O2 Del Method Room Air 07/20/24 08:52 BMI result Body Mass Index 20.9 Appearance: Alert. Oriented X3. Mild acute distress. Eyes: Pupils equal, round and reactive to light. ENT: Pharynx mildly dry MM Neck: Normal inspection. Neck supple. CVS: Normal heart rate and rhythm. Pulses normal. Respiratory: No respiratory distress. Breath sounds normal. Abdomen: Soft and non-tender. Skin: Skin warm and dry. pale skin color. Normal skin turgor. Extremities: No lower extremity edema. Neuro: Oriented X 3. No motor deficit. No sensory deficit. Course Course Course Narrative: patient to go to office for sublocade injection on discharge Medications Administered Discontinued Medications Generic Name Dose Route Start Last Admin Trade Name Freq PRN Reason Stop Dose Admin Buprenorphine/Naloxone 1 film 07/20/24 09:06 07/20/24 09:15 Buprenorphine/Naloxone 8/2 Mg Film SUBLINGUAL 07/20/24 09:07 1 film ONCE ONE Administration Lactated Ringer's 1,000 mls @ 999 mls/hr 07/20/24 08:46 07/20/24 11:42 Lr IV 07/20/24 09:46 Infused .Q1H1M ONE Infusion Ondansetron HCl 4 mg 07/20/24 08:46 07/20/24 09:05 Ondansetron Hcl 4 Mg/2 Ml Vial IVPUSH 07/20/24 08:47 4 mg ONCE ONE Administration Medical Decision Making Medical Decision Making [facility] Narrative: 38 yo male with PMH of opiate use disorder here with c/o n/v cramps and feels he is opiate withdrawal due to lack of suboxone injection at this time will obtain labs, start on fluids, SL suboxone ordered, addiction medicine aware they are trying to get him in the clinic. No localized pain to suggest appendicitis or gallbladder disease Differential Diagnosis Differential Diagnoses: The differential diagnosis associated with the presentation includes viral syndrome, opiate withdrawal Admission/Observation Consideration of admission/observation: Escalation of care including admission/observation considered feels better, tolerating PO stable for DC Consult Healthcare Provider Management of the patient was discussed with: Chemical Treatment Operator Lab Data [facility] Lab Attestation statement: I reviewed the patient's lab results. 07/20/24 08:58 07/20/24 08:58 Labs: Lab Results 07/20/24 Range/Units 08:58 WBC 10.3 (4.8-10.8) X10*3/uL RBC 4.38 L (4.60-5.80) X10*6/uL Hgb 13.7 L (14.0-18.0) g/dl Hct 39.6 L (42.0-52.0) % MCV 90.4 (80.0-98.0) fL MCH 31.3 (27.0-33.0) pg MCHC 34.6 (31.0-36.0) g/dl RDW 12.8 (11.0-16.0) % Plt Count 252 (160-400) X10*3/uL MPV 8.9 L (9.4-12.4) fL Immature Gran % (Auto) 0.5 H (0.0-0.4) % Neut % (Auto) 82.8 H (45-73) % Lymph % (Auto) 11.2 L (20-40) % [place] % (Auto) 4.7 (2-11) % Eos % (Auto) 0.6 (0-4) % Baso % (Auto) 0.2 (0-2) % Lymph # (Auto) 1.2 (1.2-4.9) X10*3/uL [place] # (Auto) 0.5 (0.1-1.2) X10*3/uL Eos # (Auto) 0.1 (0.0-0.4) X10*3/uL Baso # (Auto) 0.0 (0.0-0.2) X10*3/uL Abs Immat Gran (auto) 0.05 H (0.00-0.03) X10*3/uL Absolute Neuts (auto) 8.5 H (2.0-8.3) x10*3/uL Absolute Nucleated RBC 0.000 (0.0-0.012) X10*3/uL Nucleated RBC % (auto) 0.0 (0.0-0.2) /100WBC Sodium 140 (135-145) mmol/L Potassium 3.9 (3.3-5.1) mmol/L Chloride 105 (96-108) mmol/L Carbon Dioxide 27 (22-29) mmol/L Anion Gap 12 (12-20) BUN 16 (9-16) mg/dL Creatinine 0.80 (0.5-1.4) mg/dL Estim Creat Clear Calc 120.4 Estimated GFR > 60 Random Glucose 133 H (60-115) mg/dL Calcium 9.6 (8.4-10.2) mg/dL Magnesium 1.7 (1.6-2.6) mg/dL Total Bilirubin 0.6 (0.0-1.0) mg/dL Direct Bilirubin 0.2 (0.0-0.5) mg/dL AST 15 (5-37) U/L ALT 13 (0-40) U/L Alkaline Phosphatase 46 (39-117) U/L Total Protein 6.9 (6.5-8.0) g/dL Albumin 4.3 (3.5-5.0) g/dL Lipase 15 (8-78) U/L Ethyl Alcohol < 10 mg/dL External Record Review External record reviewed: Outpatient record Prescription Management I considered prescription management with: Other Discharge Plan Discharge Clinical Impression: Opiate withdrawal Nausea & vomiting Qualifiers: Vomiting type: unspecified Qualified Code(s): R11.2 - Nausea with vomiting, unspecified Patient Disposition: Home, Self-Care Instructions: Acute Nausea and Vomiting (ED), Narcotic Withdrawal (ED) Additional Instructions: stay hydrated eat a bland diet follow up with clinic today return for any worsening symptoms or concerns please go to the clinic as planned for your injection. good luck and take care of yourself Prescriptions: New ondansetron 4 mg tablet,disintegrating 4 mg PO Q8H PRN (Reason: nausea and vomiting) Qty: 20 0RF No Action Sublocade 100 mg/0.5 mL solution, extended rel syringe 100 mg subcut ONCE Qty: 0.5 0RF naloxone [Narcan] 4 mg/actuation spray,non-aerosol 4 mg intranasal Q2M PRN (Reason: opioid overdose) Qty: 2 0RF Rx Instructions: spray 1 dose into ONE nostril; alternate nostrils w each dose until help arrives buprenorphine-naloxone [Suboxone] 8-2 mg film 1 film sublingual BID Qty: 8 0RF Stand Alone Forms: Work/School Release Print Language: Citizen Of [place]
[2024-07-20] MEDS: Lactated Ringers 1,000 ML 999 ML IV (09:05)
[2024-07-20] MEDS: ondansetron HCL 4 MG/2 ML VIAL IVPUSH (09:05)
[2024-07-20 09:08] LABS: MANUAL DIFF FLAG NO
[2024-07-20 09:11] LABS: Basophils Percent Auto 0.2 % (0-2); Eosinophils Absolute Auto 0.1 X10*3/uL (0.0-0.4); Eosinophils Percent Auto 0.6 % (0-4); Hematocrit 39.6 % (42.0-52.0); Hemoglobin 13.7 g/dl (14.0-18.0); Imm Gran Abs Auto 0.05 X10*3/uL (0.00-0.03); Imm Gran Pct Auto 0.5 % (0.0-0.4); Lymphocytes Absolute Auto 1.2 X10*3/uL (1.2-4.9); Lymphocytes Percent Auto 11.2 % (20-40); Mean Corpuscular HGB Conc 34.6 g/dl (31.0-36.0); Mean Corpuscular Hemoglobin 31.3 pg (27.0-33.0); Mean Corpuscular Volume 90.4 fL (80.0-98.0); Mean Platelet Volume 8.9 fL (9.4-12.4); Monocytes Absolute Auto 0.5 X10*3/uL (0.1-1.2); Monocytes Percent Auto 4.7 % (2-11); Neutrophils Absolute Auto 8.5 x10*3/uL (2.0-8.3); Neutrophils Percent Auto 82.8 % (45-73); Platelet Count 252 X10*3/uL (160-400); Red Blood Count 4.38 X10*6/uL (4.60-5.80); Red Cell Distribution Width 12.8 % (11.0-16.0); White Blood Count 10.3 X10*3/uL (4.8-10.8)
[2024-07-20] MEDS: Buprenorphine/Naloxone 8/2 mg FILM 1 FILM SUBLINGUAL (09:15)
--- NOTE | 2024-07-20 09:21 | PC.NURSE ---
patient presents through external triage with cc of nausea and vomiting since this morning, patient states he is supposed to get injections for his recovery and he missed last months shot and is now presenting with withdrawal sx. patient appears pale and diaphoretic, denies any diarrhea, states he has been nauseous and had a few episodes of vomiting. patient states he has been unable to get his injection due to issues with insurance. abdomen is soft, nontender to palpation, BS normoactive in all four quadrants, 18g piv placed in RAC, patient medicated per JAN and resting comfortably on stretcher at this time. addiction medicine consulted.
[2024-07-20 09:35] LABS: Alanine Aminotransferase 13 U/L (0-40); Albumin Level 4.3 g/dL (3.5-5.0); Alkaline Phosphatase 46 U/L (39-117); Anion Gap 12 (12-20); Aspartate Amino Transferase 15 U/L (5-37); Bilirubin Direct 0.2 mg/dL (0.0-0.5); Bilirubin Total 0.6 mg/dL (0.0-1.0); Blood Urea Nitrogen 16 mg/dL (9-16); Calcium 9.6 mg/dL (8.4-10.2); Carbon Dioxide 27 mmol/L (22-29); Chloride 105 mmol/L (96-108); Creatinine Clr Calc Pharmacy 120.4; Estimated Glomerular Filt Rate > 60; Ethanol < 10 mg/dL; Glucose Random 133 mg/dL (60-115); Lipase 15 U/L (8-78); Magnesium 1.7 mg/dL (1.6-2.6); Potassium 3.9 mmol/L (3.3-5.1); Sodium 140 mmol/L (135-145); Total Protein 6.9 g/dL (6.5-8.0)
[2024-07-20 12:11] VITALS: BP 99/58; PULSE 57; RESP 18; TEMP 37.1; O2SAT 98
== END 2024-07-20 12:13 | disposition home or self-care (01) ==
PROVIDERS: Emergency Provider Emergency Medicine
DX: R11.2 Nausea with vomiting, unspecified (principal); F11.23 Opioid dependence with withdrawal; T40.2X5A Adverse effect of other opioids, initial encounter; Y92.9 Unspecified place or not applicable; R52 Pain, unspecified
CPT/HCPCS: 36415; 80048; 80076; 80307; 83690; 83735; 85025; 96361; 96372; 96374; 99284; J2405; J7120; Q9992

== ENCOUNTER 2024-08-31 16:50 | Outpatient (AMB) | payer MEDICAID, SELFPAY ==
--- NOTE | 2024-09-01 09:40 | AM.OFFVISNUR ---
Intake Visit Reasons: Sublocade Inj Allergies LOBSTER Allergy (Severe, Uncoded 07/20/24 08:54) FACIAL SWELLING Nursing Note Patient Presents for sublocade Injection. Current Dose 100mg . Given in the RLQ with no noted or stated complications. Denies any issues with previous injection. Denies symptoms, and denies any break through cravings. Last appt with provider was in January , will follow up with RN in 4 weeks for injection. Will need to see provider for check in next visit. Office Meds Sublocade 100 mg/0.5 mL solution,extended release subcutaneous syringe Performing Provider: Rosalind Dai CNP Performing Location: [facility] Administered by: Gabriella Taylor RN on 08/31/24 10:09 Dose Route Admin Location Dispensed Lot Number Expiration Date [facility] Clothing Consultant 100 mg subcut RLQ 0.5 mL [id number] 04/16/25 [address]-7 [employer]. Assessment & Plan Assessment & Plan Orders: Orders AMB Buprenorphine Injection 08/31/24 F11.90 - Opioid use, unspecified, uncomplicated Medications: New Sublocade ER (buprenorphine) 100 mg (0.5 mL) subcut ONCE 0.5 mL 0RF NS F11.90 - Opioid use, unspecified, uncomplicated
== END 2024-08-31 17:10 | disposition home or self-care (01) ==
DX: F11.90 Opioid use, unspecified, uncomplicated (principal)

== ENCOUNTER → 2024-08-31 16:50 | Outpatient (BNVA) | payer MEDICAID, SELFPAY | DX: F11.20 Opioid dependence, uncomplicated (principal) | CPT/HCPCS: 96372; Q9991 ==

== ENCOUNTER 2024-09-28 15:55 | Outpatient (AMB) | payer MEDICAID, SELFPAY ==
--- NOTE | 2024-09-28 16:26 | AM.OFFVISNUR ---
Intake Visit Reasons: Sublocade Injection Allergies LOBSTER Allergy (Severe, Uncoded 07/20/24 08:54) FACIAL SWELLING Nursing Note Patient Presents for sublocade Injection. Current Dose 100mg . Given in the with no noted or stated complication. Denies any issues with previous injection. Denies symptoms, and denies any break through cravings. Will follow up with RN in 4 weeks for injection. Office Meds Sublocade 100 mg/0.5 mL solution,extended release subcutaneous syringe Performing Provider: Rosalind Dai CNP Performing Location: [facility] Administered by: Gabriella Taylor RN on 09/30/24 10:24 Dose Route Admin Location Dispensed Lot Number Expiration Date [facility] Heating And Ventilation Engineer 100 mg subcut RLQ 0.5 mL [id number] 09/16/25 [address]-2 [employer]. Assessment & Plan Assessment & Plan Orders: Orders AMB Buprenorphine Injection 09/28/24 F11.90 - Opioid use, unspecified, uncomplicated
== END 2024-09-28 16:18 | disposition home or self-care (01) ==
LOC: HO.HCC 15:55
DX: F11.90 Opioid use, unspecified, uncomplicated (principal)

== ENCOUNTER → 2024-09-28 15:55 | Outpatient (BNVA) | payer MEDICAID, SELFPAY | DX: F11.90 Opioid use, unspecified, uncomplicated (principal); Z79.899 Other long term (current) drug therapy | CPT/HCPCS: 96372; Q9991 ==

== ENCOUNTER 2024-10-30 22:06 | Emergency (ER) | payer OTHER, SELFPAY ==
[2024-10-30 22:47] VITALS: BP 108/58; PULSE 67; RESP 20; TEMP 36.8; O2SAT 98; BMI 21.6
--- NOTE | 2024-10-30 23:31 | ED_ITS ---
HPI - General Adult General Chief complaint: General Medical Stated complaint: missing dose of medication Time Seen by Provider: 10/30/24 23:22 Source: patient Mode of arrival: ambulatory Limitations: no limitations History of Present Illness ED Provider: Dr. Prachi Castillo HPI narrative: Patient comes to the emergency room stating that he missed his appointment for buprenorphine IM injection. Patient states that he is overdue for several days and now is starting to withdrawal, patient complaining of runny nose, generalized malaise. Patient denies using drugs. Related Data Previous Rx's ?Medication ?Instructions ?Recorded naloxone 4 mg/actuation nasal 4 mg intranasal Q2M PRN opioid 11/19/22 spray (Narcan) overdose #2 ea ondansetron 4 mg disintegrating 4 mg PO Q8H PRN nausea and 07/20/24 tablet vomiting #20 tabs buprenorphine 8 mg-naloxone 2 mg 1 film sublingual DAILY #10 ea 08/25/24 sublingual film (Suboxone) buprenorphine 100 mg/0.5 mL 100 mg (0.5 mL) subcut ONCE #0.5 mL 09/27/24 solution,exten.rel.subcutaneous syringe (Sublocade) buprenorphine 8 mg-naloxone 2 mg 1 film buccal DAILY #3 ea 10/31/24 sublingual film ondansetron HCl 4 mg tablet 4 mg PO Q6H PRN nausea and 10/31/24 vomiting #14 tabs Allergies Allergy/AdvReac Type Severity Reaction Status Date / Time LOBSTER Allergy Severe FACIAL Uncoded 10/30/24 22:52 SWELLING Review of Systems Review of Systems: Constitutional : No Weight loss, No Fever, No Chills, No Night Sweats, No Fatigue, complaining of generalized malaise ENT/Mouth : No Hearing loss, No Ear Pain, complaining of rhinorrhea, No Nasal Congestion, No Sinus Pain, No Hoarseness, No sore throat, No Rhinorrhea, No Swallowing Difficulty Eyes: No Eye Pain, No Swelling, No Redness, No Foreign Body, No Discharge, No Vision Changes Cardiovascular : No Chest Pain, No SOB, No Dyspnea on Exertion, No Orthopnea, No Edema, No Palpitations Respiratory : No Cough, No Sputum, No Wheezing, No Smoke Exposure, No Dyspnea Gastrointestinal : No Nausea, No Vomiting, No Diarrhea, No Constipation, No abdominal Pain, No Hematochezia, No Melena Genitourinary : no irregular bleeding, No Dysuria, No Urinary Frequency, No Hematuria, No Urinary Incontinence, No Urgency, No Flank Pain, No Urinary Flow Changes, No Hesitancy Musculoskeletal : No joint pain, No Myalgias, No Joint Swelling Skin : No Skin Lesions, No rash Neuro : No Weakness, No Numbness, No Paresthesias, No Loss of Consciousness, No Dizziness, No Headache Psych : No Anxiety/Panic, No Depression, No SI/HI/AH/VH, No Social Issues, Heme/Lymph: No Bruising, No Bleeding,No Lymphadenopathy Endocrine : No Polyuria, No Polydipsia, No Temperature Intolerance [facility] Past Medical History Medical History Opioid use disorder Social History Social History Alcohol intake: former Substance Use Type: Marijuana Physical Exam ED Vital Signs: Vital Signs - 24 hr 10/30/24 22:47 Temperature 98.3 F Pulse Rate 67 Respiratory Rate 20 Blood Pressure 108/58 L Pulse Oximetry 98 Oxygen Delivery Method Room Air BMI result Body Mass Index 21.6 Const Other: Appearance: Alert. Oriented X3. No acute distress. Eyes: Pupils equal, round and reactive to light. ENT: Pharynx normal. Neck: Normal inspection. Neck supple. No lymph nodes noted. No crepitus CVS: Normal heart rate and rhythm. Pulses normal. Normal S1 and S2 Respiratory: No respiratory distress. Breath sounds normal. No Wheezing. No rales Abdomen: Soft and nontender. No rigidity. No distention. Skin: Skin warm and dry. Normal skin color. Normal skin turgor. Extremities: No lower extremity edema. No Lacerations. No Rash Neuro: Oriented X 3. No motor deficit. No sensory deficit. Moving all extremities. No slurred speech. CN 2 through 12 grossly intact Psych: calm, cooperative, normal affect Medical Decision Making Medical Decision Making MDM Narrative: I reviewed patient's chart, patient has been seen by Thuy Dai, patient does have instructions to be on Suboxone IM medication. Patient is to be taking Suboxone before. However, the last addiction medicine visit available for chart review was in January of 2024. The last known with the patient got a urine toxicology test was in April of 2023. Patient had a small prescription for sublingual buprenorphine in August [id number]. -I discussed with the patient that we will need a urine toxicology test, agree Urine toxicology positive for buprenorphine I marijuana, negative for all other drugs We will give him sublingual buprenorphine dose here and a small prescription for home Lab Data Labs: Lab Results 10/30/24 10/31/24 Range/Units 22:55 00:04 Urine Opiates Screen Not Detected (Not Detect) Ur Buprenorphine Scrn Positive H (Not Detect) ng/mL Ur Oxycodone Screen Not Detected (Not Detect) ng/mL Urine Methadone Screen Not Detected (Not Detect) ng/mL Urine Fentanyl Screen Not Detected (Not Detect) Ur Barbiturates Screen Not Detected (Not Detect) Ur Phencyclidine Scrn Not Detected (Not Detect) Ur Amphetamines Screen Not Detected (Not Detect) U Benzodiazepines Scrn Not Detected (Not Detect) Urine Cocaine Screen Not Detected (Not Detect) U Marijuana (THC) Screen POSITIVE H (Not Detect) Influenza Type A (PCR) NEGATIVE (Negative) Influenza Type B (PCR) NEGATIVE (Negative) RSV RNA Qual (PCR) NEGATIVE (Negative) SARS-CoV-2 RNA (RT-PCR) NEGATIVE (Negative) Discharge Plan Discharge Clinical Impression: Opiate withdrawal Patient Disposition: Home, Self-Care Instructions: Opioid Withdrawal (ED) Additional Instructions: Please follow-up with your primary care physician tomorrow. If you have any worsening or new symptoms, please return to the emergency room or call 911 Prescriptions: New buprenorphine-naloxone 8-2 mg film 1 film buccal DAILY Qty: 3 0RF ondansetron HCl 4 mg tablet 4 mg PO Q6H PRN (Reason: nausea and vomiting) Qty: 14 0RF No Action buprenorphine-naloxone [Suboxone] 8-2 mg film 1 film sublingual DAILY Qty: 10 0RF Sublocade 100 mg/0.5 mL solution, extended rel syringe 100 mg subcut ONCE Qty: 0.5 0RF ondansetron 4 mg tablet,disintegrating 4 mg PO Q8H PRN (Reason: nausea and vomiting) Qty: 20 0RF naloxone [Narcan] 4 mg/actuation spray,non-aerosol 4 mg intranasal Q2M PRN (Reason: opioid overdose) Qty: 2 0RF Rx Instructions: spray 1 dose into ONE nostril; alternate nostrils w each dose until help arrives Referrals: Rosalind Dai CNP [Nurse Practitioner] - 10/31/24 Print Language: Maltese
[2024-10-30 23:36] LABS: Influenza A PCR NEGATIVE (Negative); Influenza B PCR NEGATIVE (Negative); Resp Syncy Virus RNA Qual PCR NEGATIVE (Negative); SARS COV2 PCR INHOUSE NEGATIVE (Negative)
--- NOTE | 2024-10-31 00:11 | PC.NURSE ---
this rn assumed care of pt from waiting room urine sample obtained and sent to lab
[2024-10-31 00:29] LABS: Amphetamine Screen Urine Not Detected (Not Detect); Barbiturates, Urine Not Detected (Not Detect); Benzodiazepines Screen Urine Not Detected (Not Detect); Buprenorphine Scr Positive (Not Detect); Cannabinoid Screen Urine POSITIVE (Not Detect); Cocaine Screen Urine Not Detected (Not Detect); Fentanyl, urine Not Detected (Not Detect); Methadone Screen, Urine Not Detected (Not Detect); Opiate Screen Urine Not Detected (Not Detect); Oxycodone Screen Urine Not Detected (Not Detect); Phencyclidine Screen Urine Not Detected (Not Detect)
[2024-10-31] MEDS: Buprenorphine/Naloxone 8/2 mg FILM 1 FILM SUBLINGUAL (00:43)
[2024-10-31 00:52] VITALS: BP 101/55; PULSE 57; RESP 16; TEMP 36.7; O2SAT 97
[2024-10-31 00:56] VITALS: BP 101/55; PULSE 57; RESP 16; TEMP 36.7; O2SAT 97
== END 2024-10-31 00:57 | disposition home or self-care (01) ==
PROVIDERS: Emergency Provider Emergency Medicine
DX: F11.23 Opioid dependence with withdrawal (principal); R09.89 Other specified symptoms and signs involving the circulatory and respiratory systems; R53.83 Other fatigue; Z51.81 Encounter for therapeutic drug level monitoring; Z03.818 Encounter for observation for suspected exposure to other biological agents ruled out; Z79.899 Other long term (current) drug therapy
CPT/HCPCS: 0241U; 80307; 99283; 99284

== ENCOUNTER 2024-11-02 15:57 | Outpatient (AMB) | payer OTHER, SELFPAY ==
--- NOTE | 2024-11-02 16:01 | MHC.AM.SUB ---
Vital Signs 11/02/24 16:27 Weight 149 lb 5 oz Comment patient took boots off for weight, did have heavy sweatshirt and pants on Intake Visit Reasons: MAT/Vivitrol Injection Allergies LOBSTER Allergy (Severe, Uncoded 10/30/24 22:52) FACIAL SWELLING HPI HPI MAT/Vivitrol Injection: Details: Patient presents for OUD treatment follow up Currently receiving Sublocade 100mg q monthly would like to transition to Brixadi Spending a lot time with his daughter Not eating as much --can not open his mouth completely Needs to see primary care--due for physical Overall doing well Review of Systems Const Reports as per HPI and Reports no additional complaints Physical Exam Const General: cooperative and well groomed Nutritional Appearance: underweight Orientation/consciousness: patient oriented x3 Limitations: no limitations Neuro General: patient oriented x3 Psych Appearance: well kempt Speech and movement: Normal speech and movement present Affect: normal affect Attitude: cooperative Thought process: Normal thought process present Thought content: Normal thought content present Insight: Good insight present (Psych) Judgement: Good judgement present (Psych) Office Meds Sublocade 300 mg/1.5 mL solution,extended release subcutaneous syringe Performing Provider: Rosalind Dai CNP Performing Location: [facility] Administered by: Gabriella Taylor RN on 11/02/24 16:37 Dose Route Admin Location Dispensed Lot Number Expiration Date [facility] Hide House Supervisor 300 mg subcut RLQ 1.5 mL [id number] 09/16/25 [address]-4 [employer] Assessment & Plan Assessment & Plan (1) Opioid use disorder, moderate, in sustained remission: Code(s): F11.21 - Opioid dependence, in remission Category: Medical Plan: tolerated injection Brixadi ordered follow up 4 weeks Orders: Orders AMB Buprenorphine Injection 11/02/24 F11.90 - Opioid use, unspecified, uncomplicated [facility] Medical History Opioid use disorder Social History Alcohol intake: former Substance Use Type: Marijuana
== END 2024-11-02 16:17 | disposition home or self-care (01) ==
DX: F11.90 Opioid use, unspecified, uncomplicated (principal)

== ENCOUNTER → 2024-11-02 15:57 | Outpatient (BNVA) | payer OTHER, SELFPAY | DX: F11.21 Opioid dependence, in remission (principal) | CPT/HCPCS: 96372; 99212; Q9992 ==

== ENCOUNTER 2024-11-30 15:58 | Outpatient (AMB) | payer OTHER, SELFPAY ==
--- NOTE | 2024-11-30 16:12 | AM.OFFVISNUR ---
Intake Visit Reasons: Sublocade Injection Allergies LOBSTER Allergy (Severe, Uncoded 10/30/24 22:52) FACIAL SWELLING Office Meds Sublocade 100 mg/0.5 mL solution,extended release subcutaneous syringe Performing Provider: oRsalind Dai CNP Performing Location: [facility] Administered by: Gabriella Taylor RN on 11/30/24 16:17 Dose Route Admin Location Dispensed Lot Number Expiration Date [facility] Applications Programmer Analyst 100 mg subcut LLQ 0.5 mL [id number] 12/17/25 [address]-2 [employer] Assessment & Plan Assessment & Plan Orders: Orders AMB Buprenorphine Injection 11/30/24 F11.90 - Opioid use, unspecified, uncomplicated AMB Buprenorphine Injection 11/30/24 F11.90 - Opioid use, unspecified, uncomplicated Medications: New Sublocade ER (buprenorphine) 300 mg (1.5 mL) subcut ONCE 1.5 mL 0RF NS F11.90 - Opioid use, unspecified, uncomplicated Refilled buprenorphine ER (Sublocade) 100 mg (0.5 mL) subcut ONCE 0.5 mL 0RF
== END 2024-11-30 16:22 | disposition home or self-care (01) ==
DX: F11.90 Opioid use, unspecified, uncomplicated (principal)

== ENCOUNTER → 2024-11-30 15:58 | Outpatient (BNVA) | payer OTHER, SELFPAY | DX: F11.90 Opioid use, unspecified, uncomplicated (principal) | CPT/HCPCS: 96372; Q9991 ==

== ENCOUNTER 2024-12-28 15:55 | Outpatient (AMB) | payer OTHER, SELFPAY ==
--- OUTSIDE RECORDS SUMMARY | 2024-12-28 16:33 | XMS_ITS | Clinical Summary ---
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 112 g 3 Active Social History Tobacco Use Types Packs/Day Years Used Date Smoking Tobacco: Never Smokeless Tobacco: Never Tobacco Cessation:Counseling Given: Not Answered Alcohol Use Standard Drinks/Week Comments Never 0 (1 standard drink = 0.6 oz pur e alcohol) Sex and Gender Information Value Date Recorded Sex Assigned at Male 12/05/2022 2:15 PM EST Legal Sex Male 2:14 PM EST Gender Identity Male 12/05/2022 2:15 PM EST Sexual Orientation Straight 12/05/2022 2: 15 PM EST Last Filed Vital Signs Vital Sign Reading Time Taken Comments Blood Pressure 127/80 12/18/2022 8:39 AM EST Pulse 89 12/18/2022 8:39 AM EST Temperature - - Respiratory Rate - - Oxygen Saturation - - Inhaled Oxygen Concentration - - Weight - - Height - - Body Mass Index - - Plan of Treatment Health Maintenance Due Date Last Done Comments Dental Prophylaxis 1985 Depression Screening 1985 HIV Screening 1985 Lipid Panel 1985 SDOH Screening 1985 Alcohol/Substance Use Screening 1997 Family Planning (PISQ) 2000 Hepatitis C Screening 2003 Hepatitis A Vaccines (1 of 2 - Risk 2-dose series) 2004 Hepatitis B Vaccines (1 of 3 - 19+ 3-dose series) 2004 Dental Oral Exam 06/18/2023 12/18/2022 Tobacco Screening 12/18/2023 12/18/2022 Dental X-Ray: Bitewings 12/19/2023 12/18/2022 COVID-19 Vaccine (3 - 2023-2 5 season) 2024 08/08/2021, 07/09/2021 Influenza Vaccine (#1) 2024 DTaP/Tdap/Td Vaccines (2 - T d or Tdap) 10/02/2024 10/02/2014 Dental X-Ray: Full Mouth 12/19/2025 12/18/2022 Zoster Vaccines (1 of 2) 2035 RSV Patients and Patients Aged 60 years or older (1 - 1-dose 75+ series) 2060 HIB Vaccines Aged Out No longer eligi ble based on patient's age to complete this topic HPV Vaccines Aged Out No longer eligi ble based on patient's age to complete this topic IPV Vaccines Aged Out No longer eligi ble based on patient's age to complete this topic Meningococcal Vaccine Aged Out No kathy amada eligible based on patient's age to complete this topic Pneumococcal Vaccine: Pediatrics (0 to 5 Years) and At-Risk Patients (6 to 49) Years) Aged Out No longer eligible b ased on patient's age to complete this topic RSV under 20 months Aged Out No longe r eligible based on patient's age to complete this topic Rotavirus Vaccines Aged Out No longer eligible based on patient's age to complete this topic Procedures Procedure Name Priority Date/Time Associated Diagnosis Comments DIAGNOSTIC - DIAGNOSTIC IMAGING - INTRAORAL - COMPREHENSIVE SERIES OF RADIOGRAPHIC IMAGES Routine 12/18/2022 8:30 AM EST COMPREHENSIVE ORAL EVALUATION - NEW OR ESTABLISHED PATIENT Routine 12/18/2022 8:30 AM EST from Last 3 Months or Most Recently Relevant to Health Maintenance Insurance [facility] MEDICAID STAND ADULT
[2024-12-29 15:34] VITALS: BP 110/80; PULSE 89; RESP 20; O2SAT 98
--- NOTE | 2024-12-29 15:34 | AM.OFFVISNUR ---
Vital Signs 12/29/24 15:34 BP 110/80 Blood Pressure Location Rt brachial Position Sitting Respiration 20 Pulse 89 Pulse Source Pulse Oximeter Pulse Oximetry (%) 98 Intake Visit Reasons: Sublocade Injection Allergies LOBSTER Allergy (Severe, Uncoded 10/30/24 22:52) FACIAL SWELLING Nursing Note Patient Presents for sublocade Injection. Current Dose 100mg . Given in the RLQ with no noted or stated complications. Denies any issues with previous injection. Denies symptoms, and denies any break through cravings. Will follow up with RN in 4 weeks for injection. Will need to see provider for check in January . Office Meds Sublocade 100 mg/0.5 mL solution,extended release subcutaneous syringe Performing Provider: Rosalind Dai CNP Performing Location: [facility] Administered by: Gabriella Taylor RN on 12/29/24 15:41 Dose Route Admin Location Dispensed Lot Number Expiration Date [facility] Dietetic Technician Registered 100 mg subcut RLQ 0.5 mL [id number] 12/17/25 [address]-7 [employer]. Assessment & Plan Assessment & Plan Orders: Orders AMB Buprenorphine Injection 12/28/24 F11.90 - Opioid use, unspecified, uncomplicated Medications: New Sublocade ER (buprenorphine) 100 mg (0.5 mL) subcut ONCE 0.5 mL 0RF NS F11.90 - Opioid use, unspecified, uncomplicated Coding
== END 2024-12-28 16:57 | disposition home or self-care (01) ==
DX: F11.90 Opioid use, unspecified, uncomplicated (principal)

== ENCOUNTER → 2024-12-28 15:55 | Outpatient (BNVA) | payer OTHER, SELFPAY | DX: F11.20 Opioid dependence, uncomplicated (principal) | CPT/HCPCS: 96372; Q9991 ==

== ENCOUNTER 2025-01-16 22:10 | Emergency (ER) | payer SELFPAY ==
[2025-01-16 22:27] VITALS: BP 132/76; PULSE 73; RESP 18; TEMP 36.9; O2SAT 98; BMI 21.2
[2025-01-17 00:28] VITALS: BP 124/35; PULSE 63; RESP 20; TEMP 36.9; O2SAT 97
== END 2025-01-17 06:10 | disposition left against medical advice (07) ==
LOC: HO.ED 01-17 06:10
PROVIDERS: Emergency Provider Emergency Medicine
DX: H53.8 Other visual disturbances (principal)
CPT/HCPCS: 99281

== ENCOUNTER 2025-01-25 15:57 | Outpatient (AMB) | payer MEDICAID, SELFPAY ==
[2025-01-25 09:27] VITALS: BP 130/90; PULSE 88; RESP 19; O2SAT 99
--- NOTE | 2025-01-25 16:33 | AM.OFFVISNUR ---
Vital Signs 01/25/25 09:27 BP 130/90 H Blood Pressure Location Rt brachial Position Sitting Respiration 19 Pulse 88 Pulse Oximetry (%) 99 Oxygen Delivery Method Room Air Intake Visit Reasons: Sublocade Injection Allergies LOBSTER Allergy (Severe, Uncoded 01/16/25 22:27) FACIAL SWELLING Nursing Note Patient Presents for sublocade Injection. Current Dose 100mg . Given in the LLQ with no noted or stated complications. Denies any issues with previous injection. Denies symptoms, and denies any break through cravings. Will follow up with RN in 4 weeks for injection. Office Meds Sublocade 100 mg/0.5 mL solution,extended release subcutaneous syringe Performing Provider: Rosalind Dai CNP Performing Location: [facility] Administered by: Gabriella Taylor RN on 01/27/25 09:29 Dose Route Admin Location Dispensed Lot Number Expiration Date [facility] Clinical Data Assistant 100 mg subcut LLQ 0.5 mL [id number] 12/17/25 [address]-6 [employer]. Assessment & Plan Assessment & Plan Orders: Orders AMB Buprenorphine Injection 01/25/25 F11.90 - Opioid use, unspecified, uncomplicated Medications: New Sublocade ER (buprenorphine) 100 mg (0.5 mL) subcut ONCE 0.5 mL 0RF NS F11.90 - Opioid use, unspecified, uncomplicated Coding
--- OUTSIDE RECORDS SUMMARY | 2025-01-25 18:28 | XMS_ITS | Clinical Summary ---
Author Organization [employer] Address [address] [facility] [place] [address] Care Team Providers Care Carroter Name Role Phone Unavailable Primary Care Provider [...] Procedure Name Priority Date/Time Associated Diagnosis Comments INTRAORAL - COMPLETE SERIES OF RADIOGRAPHIC IMAGES Routine 12/18/2022 8:30 AM EST COMPREHENSIVE ORAL EVALUATION - NEW OR ESTABLISHED PATIENT Routine 12/18/2022 8:30 AM EST from Last 3 Months or Most Recently Relevant to Health Maintenance Insurance [facility] MEDICAID STAND ADULT
== END 2025-01-25 16:24 | disposition home or self-care (01) ==
LOC: HO.HCC 15:58
DX: F11.90 Opioid use, unspecified, uncomplicated (principal)

== ENCOUNTER → 2025-01-25 15:57 | Outpatient (BNVA) | payer MEDICAID, SELFPAY | DX: F11.20 Opioid dependence, uncomplicated (principal) | CPT/HCPCS: 96372; Q9991 ==

== ENCOUNTER 2025-03-08 15:52 | Outpatient (AMB) | payer MEDICAID, SELFPAY ==
[2025-03-08 16:06] VITALS: PULSE 88; O2SAT 98; BMI 23.0
--- NOTE | 2025-03-08 16:06 | MHC.OFFVIS ---
Vital Signs 03/08/25 16:06 Height 5 ft 11 in Weight 165 lb BMI 23.0 Pulse 88 Pulse Source Pulse Oximeter Pulse Oximetry (%) 98 Intake Visit Reasons: Mat Walking Allergies LOBSTER Allergy (Severe, Uncoded 01/16/25 22:27) FACIAL SWELLING HPI HPI Mat Walking: Details: He has been taking Suboxone. He has no concerns about HIV or Hepatitis C and no counseling. [facility] Medical History Opioid use disorder Social History Alcohol intake: former Substance Use Type: Marijuana Review of Systems Const All systems reviewed & are unremarkable except as noted in HPI and below Physical Exam Vital Signs: Last Vital Signs Pulse 88 03/08/25 16:06 Pulse Ox 98 03/08/25 16:06 BMI result Body Mass Index 23.0 Const General: cooperative Assessment & Plan Assessment & Plan (1) Opioid use disorder, moderate, in sustained remission: Comment: He is doing well Code(s): F11.21 - Opioid dependence, in remission Category: Medical Plan: See as scheduled. Medications: New buprenorphine-naloxone 8-2 mg (Suboxone) 1 film buccal DAILY 30 days 30 ea 0RF buprenorphine-naloxone 8-2 mg (Suboxone) 1 film buccal DAILY 14 ea 0RF 14 days buprenorphine ER (Sublocade) 100 mg (0.5 mL) subcut .30 day 0.5 mL 5RF 2 doses Coding Level of Care Code Est Pt Level 3 (73464) Diagnoses Opioid use disorder, moderate, in sustained remission F11.21
--- OUTSIDE RECORDS SUMMARY | 2025-03-08 18:22 | XMS_ITS | Clinical Summary ---
Author Organization [employer] Address [address] [place] [address] Care Team Providers Care Radiology Manager Name Role Phone Unavailable Primary Care Provider [...] Most Recently Relevant to Health Maintenance Insurance [facility] MEDICAID STAND ADULT
== END 2025-03-08 16:22 | disposition home or self-care (01) ==
LOC: HO.HCC 15:52
PROVIDERS: Visit Provider Internal Medicine
DX: F11.21 Opioid dependence, in remission (principal)
CPT/HCPCS: 99213

== ENCOUNTER → 2025-03-08 15:52 | Outpatient (BNVA) | payer MEDICAID, SELFPAY | PROVIDERS: Visit Provider Internal Medicine | DX: F11.21 Opioid dependence, in remission (principal); Z51.81 Encounter for therapeutic drug level monitoring | CPT/HCPCS: 99212 ==

== ENCOUNTER 2025-03-22 16:21 | Outpatient (AMB) | payer MEDICAID, SELFPAY ==
--- NOTE | 2025-03-22 16:26 | MHC.OFFVIS ---
Vital Signs 03/22/25 16:28 Height 5 ft 11 in Pulse 73 Pulse Source Pulse Oximeter Pulse Oximetry (%) 98 Intake Visit Reasons: MAT Allergies LOBSTER Allergy (Severe, Uncoded 03/22/25 16:32) FACIAL SWELLING HPI Comments Details: He has no complaints. [facility] Medical History Opioid use disorder Social History Alcohol intake: former Substance Use Type: Marijuana Review of Systems Const All systems reviewed & are unremarkable except as noted in HPI and below Physical Exam Vital Signs: Last Vital Signs Pulse 73 03/22/25 16:28 Pulse Ox 98 03/22/25 16:28 Const General: cooperative Results AMB 14 Panel Urine Drug Screen Urine Marijuana (THC) Positive Last Edit by Ad Marroquin CMA on 03/22/25 16:29 Urine Cocaine Negative Last Edit by Ad Marroquin CMA on 03/22/25 16:29 Urine Morphine Negative Last Edit by Ad Marroquin CMA on 03/22/25 16:29 Urine Methamphetamine Negative Last Edit by Ad Marroquin CMA on 03/22/25 16:29 Urine Amphetamine Negative Last Edit by Ad Marroquin CMA on 03/22/25 16:29 Urine Benzodiazepine Negative Last Edit by Ad Marroquin CMA on 03/22/25 16:29 Urine Barbiturates Negative Last Edit by Ad Marroquin CMA on 03/22/25 16:29 Urine Methadone Negative Last Edit by Ad Marroquin CMA on 03/22/25 16:29 Urine Buprenorphine Positive Last Edit by Ad Marroquin CMA on 03/22/25 16:29 Urine Tricyclic Antidepressant Negative Last Edit by Ad Marroquin CMA on 03/22/25 16:29 Urine MDMA Negative Last Edit by Ad Marroquin CMA on 03/22/25 16:29 Urine Oxycodone Negative Last Edit by Ad Marroquin CMA on 03/22/25 16:29 Urine Phencyclidine Negative Last Edit by dA Marroquin CMA on 03/22/25 16:29 Urine Propoxyphene Negative Last Edit by Ad Marroquin CMA on 03/22/25 16:29 Results Reviewed Results Reviewed: Laboratory Last Values POC Urine Buprenorphine Positive 03/22/25 16:29 POC Urine Morphine Negative 03/22/25 16:29 POC Urine Oxycodone Negative 03/22/25 16:29 POC Urine Methadone Negative 03/22/25 16:29 POC Urine Propoxyphene Negative 03/22/25 16:29 POC Urine Barbiturates Negative 03/22/25 16:29 POC U Tricyclic Antidpr Negative 03/22/25 16:29 POC Urine PCP Negative 03/22/25 16:29 POC Ur Amphetamines Negative 03/22/25 16:29 POC Ur Methamphetamine Negative 03/22/25 16:29 POC Urine MDMA Negative 03/22/25 16:29 POC Ur Benzodiazepine Negative 03/22/25 16:29 POC Urine Cocaine Negative 03/22/25 16:29 POC Ur Marijuana (THC) Positive 03/22/25 16:29 Assessment & Plan Assessment & Plan (1) Opioid use disorder, moderate, in sustained remission: Comment: He is doing well Code(s): F11.21 - Opioid dependence, in remission Category: Medical Plan: He is doing well. Plan continue Suboxone See as scheduled. Orders: Orders AMB 14 Panel Urine Drug Screen 03/22/25 Z51.81 - Encounter for therapeutic drug level monitoring Medications: New buprenorphine-naloxone 8-2 mg (Suboxone) 1 film sublingual DAILY 30 ea 0RF 30 days Coding Level of Care Code Est Pt Level 3 (74957) Diagnoses Opioid use disorder, moderate, in sustained remission F11.21
[2025-03-22 16:28] VITALS: PULSE 73; O2SAT 98
--- OUTSIDE RECORDS SUMMARY | 2025-03-22 16:34 | XMS_ITS | Clinical Summary ---
Author Organization [employer] Address [address] [facility] [address] [place] [address] Care Team Providers Care Shipping Room Helper Name Role Phone Unavailable Primary Care Provider [...] Most Recently Relevant to Health Maintenance Insurance [facility] MEDICAID STAND ADULT
== END 2025-03-22 16:56 | disposition home or self-care (01) ==
PROVIDERS: Visit Provider Internal Medicine
DX: F11.21 Opioid dependence, in remission (principal)
CPT/HCPCS: 99213

== ENCOUNTER → 2025-03-22 16:21 | Outpatient (BNVA) | payer MEDICAID, SELFPAY | PROVIDERS: Visit Provider Internal Medicine | DX: F11.21 Opioid dependence, in remission (principal); Z51.81 Encounter for therapeutic drug level monitoring | CPT/HCPCS: 80307; 99212 ==

== ENCOUNTER 2025-04-19 15:52 | Outpatient (AMB) | payer OTHER, SELFPAY ==
--- OUTSIDE RECORDS SUMMARY | 2025-04-19 15:55 | XMS_ITS | Clinical Summary ---
Author Organization [employer] Address [address] [facility] [address] [place] [address] Care Team Providers Care Emt Name Role Phone Unavailable Primary Care Provider [...] 1985 Lipid Panel 1985 SDOH Screening 1985 Disability Screening 1985 Alcohol/Substance Use Screening 1997 Family Planning (PISQ) 2000 Hepatitis C Screening 2003 Hepatitis A Vaccines (1 of 2 - Risk 2-dose series) 2004 Hepatitis B Vaccines (1 of 3 - 19+ 3-dose series) 2004 Dental Oral Exam 06/18/2023 12/18/2022 Tobacco Screening 12/18/2023 12/18/2022 Dental X-Ray: Bitewings 12/19/2023 12/18/2022 COVID-19 Vaccine (3 - 2023-2 5 season) 2024 08/08/2021, 07/09/2021 DTaP/Tdap/Td Vaccines (2 - T d or Tdap) 10/02/2024 10/02/2014 Influenza Vaccine (Season Ended) 2025 Dental X-Ray: Full Mouth 12/19/2025 12/18/2022 Zoster [...] patient's age to complete this topic Meningococcal B Vaccine Aged Out No l onger eligible based on patient's age to complete [...] Most Recently Relevant to Health Maintenance Insurance [facility] MEDICAID STAND ADULT
--- NOTE | 2025-04-19 16:28 | A.OFFVIS_ITS ---
Intake Visit Reasons: MAT Allergies LOBSTER Allergy (Severe, Uncoded 03/22/25 16:32) FACIAL SWELLING HPI HPI MAT: Details: He is taking Suboxone and denies opioid use. [facility] Medical History Opioid use disorder Social History Alcohol intake: former Substance Use Type: Marijuana Review of Systems Const All systems reviewed & are unremarkable except as noted in HPI and below Physical Exam Const General: cooperative Assessment & Plan Assessment & Plan (1) Opioid use disorder, moderate, in sustained remission: Comment: He is doing well Code(s): F11.21 - Opioid dependence, in remission Category: Medical Plan: Continue same Suboxone. See as scheduled. Medications: New buprenorphine-naloxone 8-2 mg (Suboxone) 1 film sublingual DAILY 30 ea 1RF 30 days Coding Level of Care Code Est Pt Level 3 (97328) Diagnoses Opioid use disorder, moderate, in sustained remission F11.21
== END 2025-04-19 16:48 | disposition home or self-care (01) ==
PROVIDERS: Visit Provider Internal Medicine
DX: F11.21 Opioid dependence, in remission (principal)
CPT/HCPCS: 99213

== ENCOUNTER → 2025-04-19 15:52 | Outpatient (BNVA) | payer MEDICAID, SELFPAY | PROVIDERS: Visit Provider Internal Medicine ==

== ENCOUNTER 2025-06-19 15:46 | Outpatient (AMB) | payer OTHER, SELFPAY ==
--- OUTSIDE RECORDS SUMMARY | 2025-06-19 15:48 | XMS_ITS | Clinical Summary ---
Author Organization [employer] Address [address] [place] [address] Care Team Providers Care Business Rules Developer Name Role Phone Unavailable Primary Care Provider [...] Use Screening 1997 Family Planning (PISQ) 2000 HPV Vaccines (1 - Male 3-dos e series) 2000 Hepatitis C Screening 2003 Hepatitis A Vaccines (1 of 2 - Risk 2-dose series) 2004 Hepatitis B Vaccines (1 of 3 - 19+ 3-dose series) 2004 Dental Oral Exam 06/18/2023 12/18/2022 Tobacco Screening 12/18/2023 12/18/2022 Dental X-Ray: Bitewings 12/19/2023 12/18/2022 COVID-19 Vaccine (3 - 2023-2 5 season) 2024 08/08/2021, 07/09/2021 DTaP/Tdap/Td Vaccines (2 - T d or Tdap) 10/02/2024 10/02/2014 Influenza Vaccine (#1) 2025 Dental X-Ray: Full Mouth 12/19/2025 12/18/2022 [...] Years) and At-Risk Patients (6 to 49) Years Aged Out No longer eligible b ased [...] Most Recently Relevant to Health Maintenance Insurance [facility] MEDICAID STAND ADULT
[2025-06-19 15:51] VITALS: BP 110/64; PULSE 74; O2SAT 98; BMI 22.6
--- NOTE | 2025-06-19 15:51 | MHC.OFFVIS ---
Vital Signs 06/19/25 15:51 Height 5 ft 11 in Weight 162 lb BMI 22.6 BP 110/64 Pulse 74 Pulse Oximetry (%) 98 Intake Visit Reasons: MAT Allergies LOBSTER Allergy (Severe, Uncoded 06/19/25 15:52) FACIAL SWELLING Medication List - Last Reconciled 06/19/25 by ARIEL TalaveraC buprenorphine-naloxone 8-2 mg (Suboxone) 1 film sublingual DAILY 30 days naloxone 4 mg/actuation (Narcan) 4 mg intranasal Q2M PRN ondansetron 4 mg PO Q8H PRN ondansetron HCl 4 mg PO Q6H PRN HPI Comments Details: A 39-year-old male presents for a follow-up visit related to substance use disorder in remission for two years continues with buprenorphine-naloxone. Denies use of opiates, alcohol, and other substances with the exception of smoking marijuana on daily basis. 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 [facility] Medical History Opioid use disorder Social History Alcohol intake: former Substance Use Type: Marijuana Review of Systems Const All systems reviewed & are unremarkable except as noted in HPI and below Physical Exam Vital Signs: Last Vital Signs Pulse 74 06/19/25 15:51 BP 110/64 06/19/25 15:51 Pulse Ox 98 06/19/25 15:51 BMI result Body Mass Index 22.6 Const General: cooperative Orientation/consciousness: patient oriented x3 Limitations: no limitations Neuro General: patient oriented x3 Psych Appearance: grossly normal Mental Status: mental status grossly normal Speech and movement: Normal speech and movement present Affect: normal affect Attitude: cooperative Thought process: Normal thought process present Thought content: Normal thought content present Insight: Good insight present (Psych) Judgement: Good judgement present (Psych) Assessment & Plan Assessment & Plan (1) Opioid use disorder, moderate, in sustained remission: Comment: He is doing well Code(s): F11.21 - Opioid dependence, in remission Category: Medical Plan The plan of care is to continue with buprenorphine-naloxone 8-2 mg daily and reduce frequency of marijuana use. Medications: Refilled buprenorphine-naloxone 8-2 mg (Suboxone) 1 film sublingual DAILY 30 ea 1RF 30 days Patient Instructions: - Continue with buprenorphine-naloxone as ordered. - Reduce frequency of marijuana use. - Follow up in two months or sooner, if needed. - Call with questions, concerns, or to report side effects/new onset of symptoms to [facility]. - The patient verbalized understanding and agreed with plan of care. Coding Level of Care Code Est Pt Level 3 (72227) Diagnoses Opioid use disorder, moderate, in sustained remission F11.21
== END 2025-06-19 16:00 | disposition home or self-care (01) ==
LOC: HO.HCC 15:46
PROVIDERS: Visit Provider Clinical Nurse Specialist Psychiatric/Mental Health
DX: F11.21 Opioid dependence, in remission (principal)
CPT/HCPCS: 99213

== ENCOUNTER 2025-08-18 15:51 | Outpatient (AMB) | payer OTHER, SELFPAY ==
--- OUTSIDE RECORDS SUMMARY | 2025-08-18 15:53 | XMS_ITS | Clinical Summary ---
Author Organization [employer] Address [address] [place] [address] Care Team Providers Care Store Stock Help Name Role Phone Unavailable Primary Care Provider [...] 12/18/2023 12/18/2022 Dental X-Ray: Bitewings 12/19/2023 12/18/2022 DTaP/Tdap/Td Vaccines (2 - T d or Tdap) 10/02/2024 10/02/2014 COVID-19 Vaccine (3 - 2024-2 6 season) 2025 08/08/2021, 07/09/2021 Influenza Vaccine (#1) 2025 Dental X-Ray: Full [...] Most Recently Relevant to Health Maintenance Insurance [facility] MEDICAID STAND ADULT
--- NOTE | 2025-08-25 16:37 | A.OFFVIS_ITS ---
Intake Visit Reasons: MAT Allergies LOBSTER Allergy (Severe, Uncoded 08/25/25 16:38) FACIAL SWELLING HPI Comments Details: History of Present Illness The patient is a 39-year-old male presenting with a wellness visit. He reports feeling well and expresses no current complaints. His medical history includes opioid use disorder, though he denies any present use of opiates, depression, or significant constipation. He also states that he does not require engagement counseling at this time. The timing of his last appointment was adjusted to accommodate his work schedule, with an appointment set at 4:00 PM. Review of Systems - General: Denies any complaints, reports feeling well. - Psychiatric: Denies depression. - Gastrointestinal: Denies significant constipation. - Substance Use: Denies current use of opiates. Physical Exam - Vitals- Stable Results Plan Patient was informed and verbally consented to the use of an ambient scribe for clinic note documentation during this visit. 1. Opioid use, unspecified, uncomplicated F11.90 A one-month supply of medication with one refill has been provided. The patient is advised to return for follow-up at the time of the next scheduled appointment to reassess the treatment plan. Discussion Notes I discussed with the patient his current wellness status and confirmed that he is feeling well without any current complaints. We reviewed his history of opioid use disorder, and he confirmed no current usage of opiates. As agreed, a one-month supply of medication and a refill was provided, and he will follow up at the next scheduled appointment to monitor his progress and discuss any neces madhu adjustments. Medical Decision Making The patient's wellness visit confirms stability in his current health status, with no new complaints reported and vital signs stable. Considering his diagn osis of opioid use disorder, I provided a medication supply designed to manage his condition on an ongoing basis. Given his self-reported abstinence from opiates and lack of depression or significant constipation, continued monitoring and engagement at follow-up appointments remain the goal to ensure sustained recovery and stability. Patient Instructions - Take the prescribed medication as directed, with the provided refill. - Return for follow-up at the date indicated for reassessment. - Continue abstaining from opiate use. - Seek care sooner if new symptoms arise or if current symptoms worsen. [facility] Medical History Opioid use disorder Social History Alcohol intake: former Substance Use Type: Marijuana Assessment & Plan Assessment & Plan (1) Opioid use disorder, moderate, in sustained remission: Comment: He is doing well Code(s): F11.21 - Opioid dependence, in remission Category: Medical Plan: na Medications: New buprenorphine-naloxone 8-2 mg 1 film sublingual DAILY 30 days 30 ea 1RF buprenorphine-naloxone 8-2 mg (Suboxone) 1 film sublingual DAILY 30 ea 1RF 30 days Coding Level of Care Code Est Pt Level 3 (37275) Diagnoses Opioid use disorder, moderate, in sustained remission F11.21
== END 2025-08-18 16:15 | disposition home or self-care (01) ==
LOC: HO.HCC 15:51
PROVIDERS: Visit Provider Internal Medicine
DX: F11.21 Opioid dependence, in remission (principal)
CPT/HCPCS: 99213

== ENCOUNTER 2025-10-18 16:26 | Outpatient (AMB) | payer SELFPAY ==
[2025-10-18 16:27] VITALS: BP 120/72; PULSE 68; O2SAT 99; BMI 23.3
--- NOTE | 2025-10-18 16:27 | A.OFFVIS_ITS ---
Vital Signs 10/18/25 16:27 Height 5 ft 11 in Weight 167 lb BMI 23.3 BP 120/72 Blood Pressure Location Lt brachial Position Sitting Pulse 68 Pulse Source Pulse Oximeter Pulse Oximetry (%) 99 Oxygen Delivery Method Room Air Intake Visit Reasons: MAT Allergies LOBSTER Allergy (Severe, Uncoded 10/18/25 16:28) FACIAL SWELLING Medication List - Last Reconciled 10/18/25 by Sonia Arnett NP-C buprenorphine-naloxone 8-2 mg (Suboxone) 1 film sublingual DAILY 30 days naloxone 4 mg/actuation (Narcan) 4 mg intranasal Q2M PRN ondansetron 4 mg PO Q8H PRN ondansetron HCl 4 mg PO Q6H PRN HPI Comments Details: A 40-year-old male presents for a follow-up visit r/t DAKOTAH in sustained remission with buprenorphine-naloxone 8-2 mg daily. Denies use of opiates, alcohol, and other substances. Reports smoking cannabis on a daily basis and continues to work full-time. Engages in conversation re: looking forward to spending quality time with family over the holidays. [facility] Medical History Opioid use disorder Social History Alcohol intake: former Substance Use Type: Marijuana Review of Systems Const All systems reviewed & are unremarkable except as noted in HPI and below Physical Exam Vital Signs: Last Vital Signs Pulse 68 10/18/25 16:27 BP 120/72 10/18/25 16:27 Pulse Ox 99 10/18/25 16:27 Oxygen Delivery Method Room Air 10/18/25 16:27 BMI result Body Mass Index 23.3 Const General: cooperative Assessment & Plan Assessment & Plan (1) Opioid use disorder, moderate, in sustained remission: Comment: He is doing well Code(s): F11.21 - Opioid dependence, in remission Category: Medical Plan The plan of care is to continue with buprenorphine-naloxone 8-2 mg daily and engage in risk reduction activities minimize cannabis use. Follow-up in 3 months or sooner if needed. Medications: Changed From buprenorphine-naloxone 8-2 mg (Suboxone) 1 film sublingual DAILY 30 days 30 ea 1RF To buprenorphine-naloxone 8-2 mg (Suboxone) One film sublingually daily 1 film sublingual DAILY 30 ea 2RF 30 days Patient Instructions: - Continue with buprenorphine-naloxone as prescribed. - Engage in risk reduction activities to minimize cannabis use. - Follow-up in 3 months or sooner if needed. - Call with questions, concerns, or to report side effects/new onset of symptoms to [facility]. - The patient verbalized understanding and agreed with plan of care. Coding Level of Care Code Est Pt Level 3 (54449) Diagnoses Opioid use disorder, moderate, in sustained remission F11.21
--- OUTSIDE RECORDS SUMMARY | 2025-10-18 18:58 | XMS_ITS | Clinical Summary ---
Author Organization [employer] Address [address] [place] [address] Care Team Providers Care Cobol Engineer Name Role Phone Unavailable Primary Care Provider [...] Most Recently Relevant to Health Maintenance Insurance [facility] MEDICAID STAND ADULT
== END 2025-10-18 16:28 | disposition home or self-care (01) ==
LOC: HO.HCC 16:26
PROVIDERS: Visit Provider Clinical Nurse Specialist Psychiatric/Mental Health
DX: F11.21 Opioid dependence, in remission (principal)
CPT/HCPCS: 99213

== ENCOUNTER → 2025-10-18 16:26 | Outpatient (BNVA) | payer SELFPAY | PROVIDERS: Visit Provider Clinical Nurse Specialist Psychiatric/Mental Health | DX: F11.21 Opioid dependence, in remission (principal) | CPT/HCPCS: 99212 ==